=== PATIENT | female | born 1950 | race Caucasian/White ===

== ENCOUNTER 2024-11-10 09:55 | Inpatient (IN) ==
--- NOTE | 2024-11-10 10:17 | Emergency Department Note ---
Impression & Plan Nausea & vomiting, Acute dehydration, Chemotherapy induced nausea and vomiting, Chemotherapy induced neutropenia, Electrolyte abnormality, Perforation of tympanic membrane ED Provider Note NAME: GUMARO LEAHY AGE: 74 SEX: F : 1950 ARRIVES VIA: Walk-In INFORMANT: Patient, family member ED PROVIDER(S): Spenser Troy MD CHIEF COMPLAINT: MEDICAL DECISION MAKING: Patient presented due to concern for recent chemotherapy and associated nausea and vomiting. IV was established and blood work was obtained. The patient did receive IV Zofran and 2 L of IV fluids. Patient with significant leukopenia and low ANC of only 140. Afebrile. Patient's hemoglobin and platelet count are normal. Kidney function with creatinine 1.36. The patient does have low phosphorus magnesium and potassium. The patient was ordered replacements for the patient's magnesium and potassium IV. Upon reassessment the patient did have some mild improvement in symptoms. Given the patient's significant electrolyte derangements I did speak with the on-call hospitalist service and the patient was admitted to medicine service. Also of note the patient was noted to have a right tympanic membrane perforation. Likely secondary to the vomiting. No obvious otorrhea or infection. Discussion w/ other healthcare providers: Sally Gayle PA-C with Dr. Julisa Orourke medicine service Prior /Outside records reviewed: I reviewed part of hematology oncology report from Dr. Simms from November 04, 2024. Patient with history of stage I small cell lung cancer s/p resection lymph nodes negative. Post cycle 1 cisplatin etoposide. Patient was given fluids and antiemetics in clinic and was to follow-up. Differential diagnosis: Gastroenteritis, food borne illness, infection, appendicitis, diverticulitis, inflammatory bowel disease, obstruction among others were considered. Diagnostics, as interpreted by me: EKG: Normal sinus rhythm, rate of 74, normal intervals, normal axis no ST elevations or T WI. Cardiac monitoring: An order was placed for continuous cardiac monitoring. The monitor shows a rate of 75 with sinus rhythm. Patient was placed on pulse oximetry Medical decision rules: None Imaging studies: None HPI: Patient presents today due to concern for vomiting. Patient reportedly has had vomiting since the time of her chemotherapy. The patient did have infusions on the , and and developed vomiting that has been persistent since the . The patient was seen on the in clinic and did receive IV fluids and nausea medication. Patient reports that she is vomiting from 5-10 times daily and is not keeping anything down. Patient does have a prior history of small cell lung cancer. The patient did have a partial lobectomy completed at [facility] back in August. She denies any chest pains or shortness of breath. The patient does not have a port in place. PAST MEDICAL HISTORY: See Below PAST SURGICAL HISTORY: See Below SOCIAL HISTORY: See Below HOME MEDICATIONS: See Below ALLERGIES: See Below VITALS: See Below PHYSICAL EXAMINATION: GENERAL: NAD, non-toxic. EYE EXAM: Normal conjunctiva. PERRL, no anisocoria and EOM's grossly intact w/o pain. Hears: Right TM with perforation no obvious effusion or otorrhea. OROPHARYNX: Dry mucus membranes, grossly normal dentition. NECK: Trachea midline, no stridor. Supple, no nuchal rigidity, no adenopathy, non-tender. No signs of meningismus. FROM of the neck with good chin to chest and neck extension. LUNGS: Clear to auscultation. Normal chest wall mechanics. HEART: NSR, no MRG. ABDOMEN: Abdomen soft, non-tender, no masses, no rebound or guarding. BACK: No CVA TTP. SKIN: No rashes and no bruising. UPPER EXTREMITIES: Upper extremities are grossly normal. LOWER EXTREMITIES: Grossly normal, no edema. NEURO EXAM: A&O x3, cranial nerves II-XII grossly intact, normal speech, moves all 4 extremities. Past Med/Surg History Problem List (Updated 11/11/24 @ 13:59 by Spenser Troy MD) Perforation of tympanic membrane (Acute) Electrolyte abnormality (Acute) Chemotherapy induced neutropenia (Acute) Chemotherapy induced nausea and vomiting (Acute) Acute dehydration (Acute) Nausea & vomiting (Acute) Hypophosphatemia Hypomagnesemia Hypokalemia Neutropenia Nausea & vomiting Encounter for pre-operative examination Warthin's tumor Ex-smoker Abnormal positron emission tomography (PET) scan Small cell lung cancer in adult Chronic bronchitis COPD with emphysema Pulmonary nodules/lesions, multiple Type II diabetes mellitus Multinodular thyroid Hyperlipidemia Medical History Small cell lung cancer in adult dx 07/2024, sx and will begin chemo 10/28/24 Nausea and vomiting after administration of anesthetic agent History of depression "only when her in 1992" Type II diabetes mellitus pt denies, stated "she has always has been borderline" Multiple pulmonary nodules Multinodular thyroid Hyperlipidemia COPD with emphysema Chronic bronchitis Cervical disc disease hx Surgical History History of bronchoscopy 07/2024, [facility] Status post lung surgery (08/28/24) Right lung partial, lymph nodes, [facility] Hx of cervical spine surgery 2000, cervical disectomy, unsure of level, no ROM limitations Family History Brother Skin cancer Cancer Sister Colorectal cancer Diabetes Cancer Mother Myocardial infarction Diabetes Heart disease Father Myocardial infarction Diabetes Heart disease Denies family history of Sudden Ovarian cancer Prostate cancer Breast cancer Social History Smoking Status: Former smoker Tobacco Type: Cigarettes Age Started Using Tobacco: 18; Age Quit Using Tobacco: 74; packs per day: 1.5; Second Hand Exposure: No; Do You Dip or Chew Tobacco: No; Hx Alcohol Use: No Hx Substance Use: No Preferred Language: Indonesian Communication Ability: Effective Hearing Ability: Hard of Hearing Field Pipe Lines Supervisor Required: No Beliefs That Will Affect Care: None marital status: / Current Living Situation: Alone current occupational status: retired How many Children do You have: 2 Feels Safe at Home: Yes Diet: regular caffeine: Yes during the past year weight has: remained stable Dental Care, Regularly: No Physical Activity Frequency: Daily Physical Activity Frequency Comment: Walking, active around the house Seatbelt Use: always Sunscreen Use: No Assistive Devices: Walker Allergies Allergies Allergy/AdvReac Type Severity Reaction Status Date / Time No Known Allergies Allergy Verified 10/15/24 13:33 Home Meds Home Medications Medication Instructions Recorded Confirmed aspirin 81 mg tablet,delayed 81 mg PO HS 10/15/24 11/10/24 release mirtazapine 15 mg tablet 15 mg PO HS 10/15/24 11/10/24 omeprazole 20 mg capsule,delayed 20 mg PO BID 11/10/24 11/10/24 release Previous Rx's Medication Instructions Recorded nebulizer accessories #1 ea 04/21/24 nebulizer and compressor #1 ea 04/21/24 albuterol sulfate 90 mcg/actuation 2 puff inhalation Q6H PRN 07/08/24 aerosol inhaler shortness of breath or wheezing #8.5 grams ipratropium 0.5 mg-albuterol 3 mg 3 ml inhalation Q4H PRN wheezing 07/08/24 (2.5 mg base)/3 mL nebulization #180 mL soln tiotropium 2.5 mcg-olodaterol 2.5 2 puff inhalation QAM #4 grams 08/04/24 mcg/actuation mist for inhalation (Stiolto Respimat) ondansetron 4 mg disintegrating 4 mg PO Q8H PRN nausea and 10/02/24 tablet vomiting 5 days #30 tabs rosuvastatin 20 mg tablet 20 mg PO HS #100 tabs 11/03/24 Results & Data (ED) Vital Signs Vital Signs - 24 hr 11/10/24 09:58 11/10/24 10:23 11/10/24 10:40 Temperature 36.9 C Temperature Source Temporal Artery Scan Pulse Rate 89 83 83 Pulse Rate from SpO2 Sensor Pulse Rhythm Regular Respiratory Rate 16 16 Respiratory Effort / Characteristics Non-Labored Spontaneous Respiratory Depth Normal Blood Pressure 116/76 Blood Pressure Mean 89 Pulse Oximetry 97 97 Oxygen Delivery Method Room Air Room Air Sepsis Recent Fever Within 48 Hours No Sepsis New/Unexplained Change in Mental Status No Sepsis Action Taken by Nursing No Action Required 11/10/24 10:42 11/10/24 11:00 11/10/24 11:30 Temperature Temperature Source Pulse Rate 79 75 80 Pulse Rate from SpO2 Sensor 76 80 Pulse Rhythm Respiratory Rate 26 H 22 22 Respiratory Effort / Characteristics Respiratory Depth Blood Pressure Blood Pressure Mean Pulse Oximetry 97 98 Oxygen Delivery Method Sepsis Recent Fever Within 48 Hours Sepsis New/Unexplained Change in Mental Status Sepsis Action Taken by Nursing 11/10/24 12:03 Temperature Temperature Source Pulse Rate 80 Pulse Rate from SpO2 Sensor 81 Pulse Rhythm Respiratory Rate 22 Respiratory Effort / Characteristics Respiratory Depth Blood Pressure 101/47 L Blood Pressure Mean 65 Pulse Oximetry 96 Oxygen Delivery Method Sepsis Recent Fever Within 48 Hours Sepsis New/Unexplained Change in Mental Status Sepsis Action Taken by Half-Way Medications Current Medication List: was personally reviewed by me Laboratory Data Attestation: I reviewed the patient's lab results. 11/11/24 06:21 04/22/25 06:21 Lab Results 11/10/24 Range/Units 10:44 WBC 1.62 L (4.8-10.8) K/ul RBC 4.08 L (4.20-5.40) M/uL Hgb 12.3 (12.0-16.0) g/dl Hct 35.7 L (37.0-47.0) % MCV 87.5 (80.0-100.0) fL MCH 30.1 (25.0-34.0) pg MCHC 34.5 (32.0-36.0) g/dL RDW Std Deviation 38.3 (36.4-46.3) fL RDW Coeff of Wilfred 11.9 (11.5-14.5) % Plt Count 136 (130-400) K/uL MPV 10.3 (9.4-12.4) fL Immature Gran % (Auto) 0.6 % Neut % (Auto) 8.7 % Lymph % (Auto) 67.9 % Sebastian % (Auto) 22.2 % Eos % (Auto) 0.0 % Baso % (Auto) 0.6 % Neut # (Auto) 0.14 L* (1.40-6.50) K/uL Lymph # (Auto) 1.10 L (1.20-3.40) K/uL Sebastian # (Auto) 0.36 (0.11-0.59) K/uL Eos # (Auto) 0.00 (0.00-0.50) K/uL Baso # (Auto) 0.01 (0.00-0.20) K/uL Immature Gran # (Auto) 0.01 (0.01-0.20) K/uL Sodium 136 (136-145) mmol/L Potassium 3.2 L (3.5-5.1) mmol/L Chloride 97 L (98-107) mmol/L Carbon Dioxide 27 (21-32) mmol/L Anion Gap 12 H (3-11) BUN 14 (6-23) mg/dl Creatinine 1.36 H (0.6-1.2) mg/dl Est Cr Clr Drug Dosing 29.3 ml/min eGFR 41.39 BUN/Creatinine Ratio 10.3 (10-20) Glucose 119 H (70-99(Fasting)) mg/dl Calcium 9.0 (8.6-10.3) mg/dl Phosphorus 2.2 L (2.5-4.9) mg/dl Magnesium 1.1 L (1.7-2.4) mg/dl Total Bilirubin 0.4 (0.2-1.0) mg/dl AST 13 (13-39) U/L ALT 8 (7-52) U/L Alkaline Phosphatase 68 (34-104) U/L Total Protein 7.4 (6.0-8.3) gm/dl Albumin 3.9 (3.4-5.0) gm/dl Globulin 3.5 (2.5-4.0) gm/dl Albumin/Globulin Ratio 1.1 (0.9-2) Administered Medications Aspirin (Aspirin 81 Mg Ectab) 81 mg PO HS JUAN Stop: 12/10/24 20:59 Last Admin: 11/10/24 19:52 Dose: 81 mg Documented By: ROSA Heparin Sodium (Porcine) (Heparin Sod 5,000 Unit/0.5 Ml Vial) 7,500 units SQ Q12 JUAN Stop: 12/10/24 20:59 Last Admin: 11/11/24 07:54 Dose: Not Given Documented By: CARLOS A Admin: 11/10/24 19:47 Dose: Not Given Documented By: ROSA Pantoprazole Sodium (Protonix) 40 mg in 10 mls @ 5 mls/min IV BID JUAN Stop: 12/10/24 12:59 Last Admin: 11/11/24 10:04 Dose: 5 mls/min Documented By: CARLOS A Admin: 11/10/24 19:54 Dose: 5 mls/min Documented By: Admin: 11/10/24 14:35 Dose: 5 mls/min Documented By: SARAH Lactated Ringer's (Lr) 1,000 mls @ 80 mls/hr IV .[id number] JUAN Stop: 11/11/24 14:29 Last Admin: 11/11/24 04:00 Dose: 80 mls/hr Documented By: Infusion: 11/11/24 03:50 Dose: Infused Documented By: Admin: 11/10/24 14:41 Dose: 80 mls/hr Documented By: SARAH Metoclopramide HCl (Metoclopramide Hcl Inj 5 Mg/Ml 2 Ml Vial) 10 mg IV Q6H JUAN Stop: 12/10/24 13:29 Last Admin: 11/11/24 13:32 Dose: Not Given Documented By: CARLOS A Admin: 11/11/24 07:45 Dose: 10 mg Documented By: CARLOS A Admin: 11/11/24 03:09 Dose: Not Given Documented By: Admin: 11/10/24 19:42 Dose: 10 mg Documented By: Admin: 11/10/24 14:44 Dose: 10 mg Documented By: SARAH Mirtazapine (Mirtazapine Tab 15 Mg Tab) 15 mg PO HS JUAN Stop: 12/10/24 20:59 Last Admin: 11/10/24 19:52 Dose: 15 mg Documented By: ROSA Discontinued Medications Sodium Chloride (Nss) 1,000 mls @ 999 mls/hr IV .[id number] JUAN Stop: 11/10/24 12:45 Last Infusion: 11/10/24 12:50 Dose: Infused Documented By: Admin: 11/10/24 11:58 Dose: 999 mls/hr Documented By: Infusion: 11/10/24 11:57 Dose: Infused Documented By: Admin: 11/10/24 11:05 Dose: 999 mls/hr Documented By: MARIANA Magnesium Sulfate/Dextrose (Magnesium Sulfate / D5w) 1 gm in 100 mls @ 100 mls/hr IV NOW STA Stop: 11/10/24 13:28 Last Infusion: 11/10/24 13:47 Dose: Infused Documented By: Admin: 11/10/24 12:57 Dose: 100 mls/hr Documented By: MARIANA Potassium Chloride (K Yariel / Wtr) 10 meq in 100 mls @ 100 mls/hr IV Q1H JUAN Stop: 11/10/24 14:29 Last Admin: 11/10/24 12:50 Dose: Not Given Documented By: MARIANA Magnesium Sulfate/Dextrose (Magnesium Sulfate / D5w) 1 gm in 100 mls @ 50 mls/hr IV Q2H JUAN Stop: 11/10/24 16:44 Last Infusion: 11/10/24 19:33 Dose: Infused Documented By: Admin: 11/10/24 17:33 Dose: 50 mls/hr Documented By: Infusion: 11/10/24 17:00 Dose: Infused Documented By: Admin: 11/10/24 14:35 Dose: 50 mls/hr Documented By: SARAH Potassium Phosphate 6 mmol/ (Sodium Chloride) 102 mls @ 88 mls/hr IV ONE ONE Stop: 11/10/24 14:09 Last Infusion: 11/10/24 15:45 Dose: Infused Documented By: Admin: 11/10/24 14:35 Dose: 88 mls/hr Documented By: SARAH Potassium Chloride (K Yariel / Wtr) 10 meq in 100 mls @ 100 mls/hr IV Q1H JUAN Stop: 11/11/24 11:44 Last Infusion: 11/11/24 12:18 Dose: Infused Documented By: CARLOS A Admin: 11/11/24 11:17 Dose: 100 mls/hr Documented By: CARLOS A Infusion: 11/11/24 11:04 Dose: Infused Documented By: CARLOS A Admin: 11/11/24 10:04 Dose: 100 mls/hr Documented By: CARLOS A Ondansetron HCl (Ondansetron Inj 2 Mg/Ml 2 Ml Vial) 4 mg IV NOW STA Stop: 11/10/24 10:44 Last Admin: 11/10/24 11:05 Dose: 4 mg Documented By: MARIANA Sodium Phosphate (Sodium Phosphate 3 Mmol/1 Ml Infusion) 6 mmol IV NOW STA Stop: 11/10/24 12:43 Last Admin: 11/10/24 12:50 Dose: Not Given Documented By: MARIANA Discharge Plan Visit Data Chief Complaint: Vomiting Stated Complaint: CHEMO, VOMITING SINCE ED Provider: Spenser Troy Discharge Problem: Nausea & vomiting, Acute dehydration, Chemotherapy induced nausea and vomiting, Chemotherapy induced neutropenia, Electrolyte abnormality, Perforation of tympanic membrane Patient Disposition: Admitted As Inpatient Discharge Instructions Interventions: ED Discharge Assessment Last Done: 11/10/24 13:43 Discharge Problem: Nausea & vomiting Qualifiers: Vomiting type: unspecified Qualified Code(s): R11.2 - Nausea with vomiting, unspecified Perforation of tympanic membrane Qualifiers: Laterality: right Qualified Code(s): H72.91 - Unspecified perforation of tympanic membrane, right ear
[2024-11-10] MEDS: ONDANSETRON INJ 2 MG/ML 2 ML VIAL IV STA (11:05)
[2024-11-10] MEDS: SODIUM CHLORIDE 0.9% 1,000 ML IV SCH (11:05)
[2024-11-10 11:18] LABS: Hematocrit (blood only) 35.7 % (37.0-47.0); Hemoglobin 12.3 g/dl (12.0-16.0); Mean Corpuscular Hemoglobin 30.1 pg (25.0-34.0); Mean Corpuscular Hgb Conc 34.5 g/dL (32.0-36.0); Mean Corpuscular Volume 87.5 fL (80.0-100.0); Mean Platelet Volume 10.3 fL (9.4-12.4); Platelet Count 136 K/uL (130-400); RDW Coefficient of Variation 11.9 % (11.5-14.5); RDW Standard Deviation 38.3 fL (36.4-46.3); Red Blood Count 4.08 M/uL (4.20-5.40)
[2024-11-10 11:20] LABS: Albumin Globulin Ratio 1.1 (0.9-2); Albumin Level 3.9 gm/dl (3.4-5.0); BUN Creatinine Ratio 10.3 (10-20); Bilirubin,Total 0.4 mg/dl (0.2-1.0); Creatinine Clr Calc Pharmacy 29.3 ml/min; Globulin 3.5 gm/dl (2.5-4.0); Magnesium 1.1 mg/dl (1.7-2.4); Phosphorus 2.2 mg/dl (2.5-4.9); Potassium 3.2 mmol/L (3.5-5.1); Total Protein 7.4 gm/dl (6.0-8.3)
[2024-11-10 11:49] LABS: White Blood Count 1.62 K/ul (4.8-10.8)
[2024-11-10 11:56] LABS: Basophils # (auto) 0.01 K/uL (0.00-0.20); Basophils % (auto) 0.6 %; Immature Granulocytes # (auto) 0.01 K/uL (0.01-0.20); Immature Granulocytes % (auto) 0.6 %; Lymphocytes % (auto) 67.9 %; Monocytes # (auto) 0.36 K/uL (0.11-0.59); Monocytes % (auto) 22.2 %; Neutrophils # (auto) 0.14 K/uL (1.40-6.50); Neutrophils % (auto) 8.7 %
[2024-11-10] MEDS ORDERED: POTASSIUM PHOS 3 MMOL/1 ML INFUSION IV STA (12:44)
[2024-11-10] MEDS ORDERED: ONDANSETRON INJ 2 MG/ML 2 ML VIAL IV PRN (12:45)
[2024-11-10] MEDS: SODIUM PHOSPHATE 3 MMOL/1 ML INFUSION IV STA (12:50)
[2024-11-10] MEDS: POTASSIUM CHLORIDE / WTR 10 MEQ/100 ML PLCT IV SCH (12:50)
[2024-11-10] MEDS ORDERED: PROMETHAZINE 6.25 MG/50.25 ML BAG IV PRN (12:56)
[2024-11-10] MEDS ORDERED: ACETAMINOPHEN 325 MG TAB PO PRN (12:56)
[2024-11-10] MEDS: MAGNESIUM SULFATE / D5W 1 GM/100 ML BAG IV STA (12:57)
--- NOTE | 2024-11-10 13:21 | History & Physical Report ---
Date of Service November 10, 2024 Assessment & Plan (1) Nausea & vomiting: (2) Small cell lung cancer in adult: (3) Neutropenia: (4) Type II diabetes mellitus: (5) Hypokalemia: (6) Hypomagnesemia: (7) Hypophosphatemia: Plan This is a 74-year-old female with past medical history of COPD, small cell lung cancer, type 2 diabetes who presented to the emergency department on with a chief complaint of refractory nausea/vomiting. While in the ED patient was found to have a low WBC of 1.62 with neutrophil 0.14. Hemoglobin and platelet count both stable. BMP with low potassium of 3.2. Creatinine was 1.36 which has improved from 11/04. (1.75). Phosphorus was low at 2.2 and magnesium was low at 1.1. Patient's electrolytes were replaced, she was given IV fluids, and a dose of Zofran. #Nausea/Vomiting/Electrolyte abnormalities Secondary to recent chemotherapy infusions 10/28-10/30. She has been persistently vomiting since 11/02. s/p IVF & antiemetics at oncology clinic on 11/04. Start Reglan 10mg IV q6h scheduled to aide w/ continuous nausea. Start IV PPI BID. Zofran 1st line, Phenergan 2nd line prn for refractory nausea/vomiting Obtain EKG to evaluate QTc interval NPO, allowed sips/chips as tolerated. AM CBC, BMP, Phosphorous, and Magnesium #Electrolyte abnormalities/PATI Baseline creatinine 0.7-0.8 BMP w/ low K of 3.2, Creatinine 1.36 (previously 1.75 on 11/04 s/p 1L IVF @ onc) Magnesium 1.1, Phosphorous 2.2 s/p repletion of Mag, Phos & K s/p 2L IVF in ED, continue IV at gentle rate to promote rehydration, LR @ 80ml/hr x 2 additional bags. Recheck labs in AM #SCLC/Neutropenia Patient w/ recent diagnosis of SCLC w/ partial right lobectomy in 08/2024 @ [facility]. Started Chemotherapy w/ cisplatin/etoposide on 10/28 Follows w/ Dr. Simms outpatient CBC w/ low WBC of 1.26 w/ neutrophil of 0.14 Neutropenic precautions Oncology consulted, appreciate recommendations. Continue home inhalers #Type 2 DM A1c 07/2024: 6.6% Does not appear to be on outpatient regimen. BG @ admission 119 Hold SSI given poor appetite & NPO status Consider SSI coverage if BG start to be consistently elevated. Chronic conditions: Mental health: Mirtazapine HLD: statin hold while NPO DVT prophylaxis: Heparin BID Code: DNR/DNI Updated family at bedside 11/[address] Egan at time of admission. History of Present Illness Primary Care Provider: CRISTINA Dupont This is a 74-year-old female with past medical history of COPD, small cell lung cancer, type 2 diabetes who presented to the emergency department on with a chief complaint of refractory nausea/vomiting. The patient was seen and examined this morning with family at bedside. Patient reports that she has been having ongoing nausea and vomiting since her first round of chemotherapy. Patient was recently diagnosed with small cell lung cancer and had a partial right lobectomy at [facility] in August 2024. She had chemotherapy infusions on October 28, , and . She then developed vomiting afterwards and has had persistent symptoms since about November 02. She was seen back in the oncology clinic on November 04 in which she had IV fluids and antiemetics given to her. Despite this she continues to experience symptoms. She is having about 5-10 episodes of emesis daily. She is having issues keeping food down. She states that since chemotherapy she has kept very little food down. Her last episode of emesis was just prior to my arrival. She states that she is able to drink small sips of water and that typically does stay down. She denies any abdominal pain. She reports that she was constipated during this time but this morning had an episode of diarrhea. She denies any hematemesis. She denies any fevers, chills, dizziness. She denies any chest pain or shortness of breath. Denies any lower extremity edema. Denies any urinary complaints. Code discussion to take place with the patient and she did report that she would like to be a DNR/DNI. While in the ED patient was found to have a low WBC of 1.62 with neutrophil 0.14. Hemoglobin and platelet count both stable. BMP with low potassium of 3.2. Creatinine was 1.36 which has improved from 11/04. (1.75). Phosphorus was low at 2.2 and magnesium was low at 1.1. Patient's electrolytes were replaced, she was given IV fluids, and a dose of Zofran. Allergies Allergy/AdvReac Type Severity Reaction Status Date / Time No Known Allergies Allergy Verified 10/15/24 13:33 Home Medications Medication Instructions Recorded Confirmed Type nebulizer accessories #1 ea 04/21/24 10/02/24 Rx nebulizer and compressor #1 ea 04/21/24 10/02/24 Rx albuterol sulfate 90 mcg/actuation 2 puff inhalation Q6H PRN 07/08/24 10/15/24 Rx aerosol inhaler shortness of breath or wheezing #8.5 grams ipratropium 0.5 mg-albuterol 3 mg 3 ml inhalation Q4H PRN wheezing 07/08/24 10/15/24 Rx (2.5 mg base)/3 mL nebulization #180 mL soln tiotropium 2.5 mcg-olodaterol 2.5 2 puff inhalation QAM #4 grams 08/04/24 10/15/24 Rx mcg/actuation mist for inhalation (Stiolto Respimat) ondansetron 4 mg disintegrating 4 mg PO Q8H PRN nausea and 10/02/24 10/15/24 Rx tablet vomiting 5 days #30 tabs aspirin 81 mg tablet,delayed 81 mg PO HS 10/15/24 10/15/24 History release mirtazapine 15 mg tablet 15 mg PO HS 10/15/24 10/15/24 History rosuvastatin 20 mg tablet 20 mg PO HS #100 tabs 11/03/24 Rx Past Med/Surg History Problem List (Updated 11/10/24 @ 13:08 by Janay White PA-C) Hypophosphatemia Hypomagnesemia Hypokalemia Neutropenia Nausea & vomiting Encounter for pre-operative examination Warthin's tumor Ex-smoker Abnormal positron emission tomography (PET) scan Small cell lung cancer in adult Chronic bronchitis COPD with emphysema Pulmonary nodules/lesions, multiple Type II diabetes mellitus Multinodular thyroid Hyperlipidemia Medical History Cervical disc disease hx Chronic bronchitis COPD with emphysema History of depression "only when her in 1992" Hyperlipidemia Multinodular thyroid Multiple pulmonary nodules Nausea and vomiting after administration of anesthetic agent Small cell lung cancer in adult dx 07/2024, sx and will begin chemo 10/28/24 Type II diabetes mellitus pt denies, stated "she has always has been borderline" Surgical History History of bronchoscopy 07/2024, [facility] Hx of cervical spine surgery 2000, cervical disectomy, unsure of level, no ROM limitations Status post lung surgery (08/28/24) Right lung partial, lymph nodes, [facility] Family History Brother Skin cancer Cancer Sister Colorectal cancer Diabetes Cancer Mother Myocardial infarction Diabetes Heart disease Father Myocardial infarction Diabetes Heart disease Denies family history of Sudden Ovarian cancer Prostate cancer Breast cancer Social History (Updated 10/15/24 @ 10:33 by Cielo Owen RN) Smoking Status: Former smoker Tobacco Type: Cigarettes Age Started Using Tobacco: 18; Age Quit Using Tobacco: 74; packs per day: 1.5; Second Hand Exposure: Yes (hx); Do You Dip or Chew Tobacco: No; Hx Alcohol Use: No Hx Substance Use: No Preferred Language: Somali Communication Ability: Effective Hearing Ability: Hard of Hearing Sleep Technologist Required: No Beliefs That Will Affect Care: None marital status: / Current Living Situation: Alone current occupational status: retired How many Children do You have: 2 Feels Safe at Home: Yes Diet: regular caffeine: Yes during the past year weight has: remained stable Dental Care, Regularly: No Physical Activity Frequency: Daily Physical Activity Frequency Comment: Walking, active around the house Seatbelt Use: always Sunscreen Use: No Assistive Devices: Denture - Upper, Denture - Lower and Nebulizer Results & Data Results & Data Vital Signs (Past 12 Hours) Vital Signs Temp Pulse Resp BP Pulse Ox O2 Del Method 11/10/24 12:03 80 22 101/47 L 96 11/10/24 11:30 80 22 98 11/10/24 11:00 75 22 97 11/10/24 10:42 79 26 H 11/10/24 10:40 83 16 97 Room Air 11/10/24 10:23 83 11/10/24 09:58 36.9 C 89 16 116/76 97 Room Air Code Status & VTE Plan VTE Prophylaxis Plan VTE Prophylaxis will be ordered: Yes Supervising Physician Co-Signing Physician Notes The patient was seen by me. The chart was reviewed. Case discussed with BERNARD Garcia. Agree with assessment and plan PG Care Time/CCT Total # of Minutes Spent Total Time Spent with Patient: Total time spent is greater than 50% in coordination of care (as documented) at patient's floor/unit and/or counseling patient: Coding Level of Care Code 48975 INT INP/OBS CARE 3/75MIN Diagnoses Nausea & vomiting R11.2 Small cell lung cancer in adult C34.90 Neutropenia D70.9 Type II diabetes mellitus E11.9 Hypokalemia E87.6 Hypomagnesemia E83.42 Hypophosphatemia E83.39
[2024-11-10] MEDS ORDERED: ALBUT/IPRATROP 3MG/0.5MG NEB 3 ML VIAL INH PRN (14:00)
[2024-11-10] MEDS ORDERED: ALBUTEROL HFA 8 GM INHALER INH PRN (14:00)
[2024-11-10] MEDS: MAGNESIUM SULFATE / D5W 1 GM/100 ML BAG IV SCH (14:35)
[2024-11-10] MEDS: PANTOprazole 40 MG/10 ML SYR IV SCH (14:35)
[2024-11-10] MEDS: POTASSIUM PHOSPHATE 6 MMOL in SODIUM CHLORIDE 0.9% 100 ML IV ONE (14:35)
[2024-11-10] MEDS: LACTATED RINGER'S 1,000 ML IV SCH (14:41)
[2024-11-10] MEDS: METOCLOPRAMIDE HCL INJ 5 MG/ML 2 ML VIAL IV SCH (14:44)
[2024-11-10] MEDS: HEPARIN SOD 5,000 UNIT/0.5 ML VIAL SQ SCH (19:47)
[2024-11-10] MEDS: MIRTAZAPINE TAB 15 MG TAB PO SCH (19:52)
[2024-11-10] MEDS: ASPIRIN 81 MG ECTAB PO SCH (19:52)
[2024-11-11 07:11] LABS: Hematocrit (blood only) 29.8 % (37.0-47.0); Hemoglobin 10.2 g/dl (12.0-16.0); Mean Corpuscular Hemoglobin 29.9 pg (25.0-34.0); Mean Corpuscular Hgb Conc 34.2 g/dL (32.0-36.0); Mean Corpuscular Volume 87.4 fL (80.0-100.0); Mean Platelet Volume 10.1 fL (9.4-12.4); Platelet Count 170 K/uL (130-400); RDW Coefficient of Variation 12.1 % (11.5-14.5); RDW Standard Deviation 38.7 fL (36.4-46.3); Red Blood Count 3.41 M/uL (4.20-5.40)
--- NOTE | 2024-11-11 07:13 | Oncology Consultation ---
Date of Consultation November 11, 2024 History of Present Illness Attending Physician: Whitney Rivera DO Allergies Allergy/AdvReac Type Severity Reaction Status Date / Time No Known Allergies Allergy Verified 10/15/24 13:33 Home Medications Medication Instructions Recorded Confirmed Type nebulizer accessories #1 ea 04/21/24 10/02/24 Rx nebulizer and compressor #1 ea 04/21/24 10/02/24 Rx albuterol sulfate 90 mcg/actuation 2 puff inhalation Q6H PRN 07/08/24 11/10/24 Rx aerosol inhaler shortness of breath or wheezing #8.5 grams ipratropium 0.5 mg-albuterol 3 mg 3 ml inhalation Q4H PRN wheezing 07/08/24 11/10/24 Rx (2.5 mg base)/3 mL nebulization #180 mL soln tiotropium 2.5 mcg-olodaterol 2.5 2 puff inhalation QAM #4 grams 08/04/24 11/10/24 Rx mcg/actuation mist for inhalation (Stiolto Respimat) ondansetron 4 mg disintegrating 4 mg PO Q8H PRN nausea and 10/02/24 11/10/24 Rx tablet vomiting 5 days #30 tabs aspirin 81 mg tablet,delayed 81 mg PO HS 10/15/24 11/10/24 History release mirtazapine 15 mg tablet 15 mg PO HS 10/15/24 11/10/24 History rosuvastatin 20 mg tablet 20 mg PO HS #100 tabs 11/03/24 11/10/24 Rx omeprazole 20 mg capsule,delayed 20 mg PO BID 11/10/24 11/10/24 History release Patient History Medical History Cervical disc disease hx Chronic bronchitis COPD with emphysema History of depression "only when her in 1992" Hyperlipidemia Multinodular thyroid Multiple pulmonary nodules Nausea and vomiting after administration of anesthetic agent Small cell lung cancer in adult dx 07/2024, sx and will begin chemo 10/28/24 Type II diabetes mellitus pt denies, stated "she has always has been borderline" Surgical History History of bronchoscopy 07/2024, [facility] Hx of cervical spine surgery 2000, cervical disectomy, unsure of level, no ROM limitations Status post lung surgery (08/28/24) Right lung partial, lymph nodes, [facility] Family History Brother Skin cancer Cancer Sister Colorectal cancer Diabetes Cancer Mother Myocardial infarction Diabetes Heart disease Father Myocardial infarction Diabetes Heart disease Denies family history of Sudden Ovarian cancer Prostate cancer Breast cancer Social History (Updated 10/15/24 @ 10:33 by Cielo Owen, RN) Smoking Status: Former smoker Tobacco Type: Cigarettes Age Started Using Tobacco: 18; Age Quit Using Tobacco: 74; packs per day: 1.5; Second Hand Exposure: No; Do You Dip or Chew Tobacco: No; Hx Alcohol Use: No Hx Substance Use: No Preferred Language: Yi Communication Ability: Effective Hearing Ability: Hard of Hearing Cylinder Checker Required: No Beliefs That Will Affect Care: None marital status: / Current Living Situation: Alone current occupational status: retired How many Children do You have: 2 Feels Safe at Home: Yes Diet: regular caffeine: Yes during the past year weight has: remained stable Dental Care, Regularly: No Physical Activity Frequency: Daily Physical Activity Frequency Comment: Walking, active around the house Seatbelt Use: always Sunscreen Use: No Assistive Devices: Denture - Upper, Denture - Lower, Glasses and Walker Results & Data Vital Signs (Past 12 Hours) Vital Signs Temp Pulse Pulse Resp BP Pulse Ox O2 Del Method 11/11/24 05:41 68 11/11/24 03:44 36.8 C 72 18 117/69 94 Room Air 11/10/24 23:12 37.1 C 79 18 120/58 L 93 Room Air 11/10/24 22:15 77 11/10/24 19:34 Room Air 11/10/24 19:30 36.9 C 74 18 127/72 94 Room Air
[2024-11-11 07:21] LABS: BUN Creatinine Ratio 8.5 (10-20); Creatinine Clr Calc Pharmacy 38.4 ml/min; Magnesium 1.6 mg/dl (1.7-2.4); Phosphorus 2.4 mg/dl (2.5-4.9); Potassium 2.8 mmol/L (3.5-5.1)
[2024-11-11 07:35] LABS: White Blood Count 2.82 K/ul (4.8-10.8)
[2024-11-11 08:04] LABS: Basophils # (auto) 0.01 K/uL (0.00-0.20); Basophils % (auto) 0.4 %; Dohle Bodies 1+; Eosinophils # (auto) 0.01 K/uL (0.00-0.50); Eosinophils % (auto) 0.4 %; Immature Granulocytes # (auto) 0.04 K/uL (0.01-0.20); Immature Granulocytes % (auto) 1.4 %; Lymphocytes # (auto) 1.41 K/uL (1.20-3.40); Monocytes # (auto) 0.58 K/uL (0.11-0.59); Monocytes % (auto) 20.6 %; Neutrophils # (auto) 0.77 K/uL (1.40-6.50); Neutrophils % (auto) 27.2 %; Polychromasia 1+
[2024-11-11] MEDS: POTASSIUM CHLORIDE / WTR 10 MEQ/100 ML PLCT IV SCH (10:04)
--- NOTE | 2024-11-11 10:10 | Electrocardiogram Report ---
Test Reason : Blood Pressure : */* mmHG Vent. Rate : 74 BPM Atrial Rate : 74 BPM P-R Int : 168 ms QRS Dur : 86 ms QT Int : 386 ms P-R-T Axes : 68 60 39 degrees QTcB Int : 428 ms Normal sinus rhythm Nonspecific T wave abnormality Abnormal ECG When compared with ECG of 30-Jul-2024 06:09, Nonspecific T wave abnormality now evident in Lateral leads Confirmed by Gurwinder Contreras ([id number]) on 11/11/2024 10:10:51 AM Referred By: REFERRED SELF Confirmed By: Gurwinder Contreras
--- NOTE | 2024-11-11 14:29 | Hospitalist Progress Note ---
Date of Service November 11, 2024 Assessment & Plan (1) Nausea & vomiting: (2) Small cell lung cancer in adult: (3) Neutropenia: (4) Type II diabetes mellitus: (5) Hypokalemia: (6) Hypomagnesemia: (7) Hypophosphatemia: Plan This is a 74-year-old female with past medical history of COPD, small cell lung cancer, type 2 diabetes who presented to the emergency department on with a chief complaint of refractory nausea/vomiting. While in the ED patient was found to have a low WBC of 1.62 with neutrophil 0.14. Hemoglobin and platelet count both stable. BMP with low potassium of 3.2. Creatinine was 1.36 which has improved from 11/04. (1.75). Phosphorus was low at 2.2 and magnesium was low at 1.1. Patient's electrolytes were replaced, she was given IV fluids, and a dose of Zofran. overall plan started on diet on 11/11, c/w reglan IV replacement kcl with IV and oral giving her magnesium IV today given low magnesium of 1.6 she was seen by PT on 11/11 and doing well tomorrow, may switch from IV to oral reglan to ensure she's tolerate diet continue to monitor for hypokalemia, hypomagnesemia # chemo related nausea and vomiting recent chem 10/28-10/30. She has been persistently vomiting since 11/02. s/p IVF & antiemetics at oncology clinic on 11/04. improving reglan 10mg IV [id number] schedule and on 11/11, started diet check QTc interval Start IV PPI BID. Zofran 1st line, Phenergan 2nd line prn for refractory nausea/vomiting Obtain EKG to evaluate QTc interval hypokalemia potassium of 2.7, s/p IV potassium replacement oral replacement PATI (baseline of 0.7--> 1.36) s/p IV fluid stable. hypomagnesium-giving her replacement her magnesium is 1.6 on 11/11 will give another magnesium 2mg IV #SCLC/Neutropenia newly diagnosed SCLC w/ partial right lobectomy in 08/2024 @ [facility]. Started Chemotherapy w/ cisplatin/etoposide on 10/28 Follows w/ Dr. Simms outpatient CBC w/ low WBC of 1.26 w/ neutrophil of 0.14 Neutropenic precautions Oncology consulted, appreciate recommendations. Continue home inhalers #Type 2 DM (a1c of 6.6) Hold SSI given poor appetite & NPO status Consider SSI coverage if BG start to be consistently elevated. Chronic conditions: Mental health: Mirtazapine HLD: statin hold while NPO DVT prophylaxis: Heparin BID Code: DNR/DNI Admission and Anticipated Discharge Date Admission Date: November 10, 2024 Subjective she was started on soft diet today, her hypokalemia still there started on IV improvement chemo related nausea and vomiting no abdominal pain cleared by PT Review of Systems Review of Systems: Constitutional: No Weight Change, No Fever, No Chills, No Night Sweats, No Fa tigue, No Malaise Cardiovascular: No Chest Pain, No SOB, No PND, No Dyspnea on Exertion, No Orthopnea, No Claudication, No Edema, No Palpitations Respiratory: No Cough, No Sputum, No Wheezing, No Smoke Exposure, No Dyspnea Gastrointestinal: nausea and vomiting improved; no abdominal pain, no diarrhea Skin: No Skin Lesions, No Pruritis, No Hair Changes, No Breast/Skin Changes, No Nipple Discharge Neuro: No Weakness, No Numbness, No Paresthesias, No Loss of Consciousness, No Syncope, No Dizziness, No Headache, No Coordination Changes, No Recent Falls Heme/Lymph: No Bruising, No Bleeding, No Transfusions History, No Lymphadenopathy Endocrine: No Polyuria, No Polydipsia, No Temperature Intolerance Physical Exam Physical Exam: VITALS: Reviewed. WEIGHT/BMI reviewed. GEN: Healthy appearing, well-developed, NAD. -Head: NC/AT; -Mouth and throat: MMM. Normal gums, muc meka, palate,. Good dentition. NECK: Supple, with no masses. CV: RRR, no m/r/g. LUNGS: CTAB, no w/r/c. ABD: Soft, NT/ND, NBS, no masses or organomegaly. MSK: No deformities, Normal gait. EXT: No clubbing, cyanosis, or edema. NEURO: Ambulating with no limitations. Normal muscle strength and tone. No focal deficits. Results & Data Results & Data Vital Signs (Past 12 Hours) Vital Signs Temp Pulse Pulse Resp BP Pulse Ox O2 Del Method 11/11/24 11:55 36.8 C 76 18 116/70 97 Room Air 11/11/24 10:57 Room Air 11/11/24 08:03 36.9 C 72 16 113/66 95 Room Air 11/11/24 05:41 68 11/11/24 03:44 36.8 C 72 18 117/69 94 Room Air Laboratory Results Laboratory Results - last 72 hr 11/10/24 11/10/24 11/10/24 10:44 18:27 23:59 WBC 1.62 L RBC 4.08 L Hgb 12.3 Hct 35.7 L MCV 87.5 MCH 30.1 MCHC 34.5 RDW Std Deviation 38.3 RDW Coeff of Wilfred 11.9 Plt Count 136 MPV 10.3 Immature Gran % (Auto) 0.6 Neut % (Auto) 8.7 Lymph % (Auto) 67.9 [place] % (Auto) 22.2 Eos % (Auto) 0.0 Baso % (Auto) 0.6 Neut # (Auto) 0.14 L* Lymph # (Auto) 1.10 L [place] # (Auto) 0.36 Eos # (Auto) 0.00 Baso # (Auto) 0.01 Immature Gran # (Auto) 0.01 Dohle Bodies Polychromasia Sodium 136 Potassium 3.2 L Chloride 97 L Carbon Dioxide 27 Anion Gap 12 H BUN 14 Creatinine 1.36 H Est Cr Clr Drug Dosing 29.3 eGFR 41.39 BUN/Creatinine Ratio 10.3 Glucose 119 H POC Glucose 104 H 89 Calcium 9.0 Phosphorus 2.2 L Magnesium 1.1 L Total Bilirubin 0.4 AST 13 ALT 8 Alkaline Phosphatase 68 Total Protein 7.4 Albumin 3.9 Globulin 3.5 Albumin/Globulin Ratio 1.1 11/11/24 11/11/24 11/11/24 06:21 06:23 12:02 WBC 2.82 L RBC 3.41 L Hgb 10.2 L Hct 29.8 L MCV 87.4 MCH 29.9 MCHC 34.2 RDW Std Deviation 38.7 RDW Coeff of Wilfred 12.1 Plt Count 170 MPV 10.1 Immature Gran % (Auto) 1.4 Neut % (Auto) 27.2 Lymph % (Auto) 50.0 [place] % (Auto) 20.6 Eos % (Auto) 0.4 Baso % (Auto) 0.4 Neut # (Auto) 0.77 L* Lymph # (Auto) 1.41 [place] # (Auto) 0.58 Eos # (Auto) 0.01 Baso # (Auto) 0.01 Immature Gran # (Auto) 0.04 Dohle Bodies 1+ Polychromasia 1+ Sodium 138 Potassium 2.8 L Chloride 104 Carbon Dioxide 27 Anion Gap 7 BUN 9 Creatinine 1.06 D Est Cr Clr Drug Dosing 38.4 eGFR 55.81 BUN/Creatinine Ratio 8.5 L Glucose 86 POC Glucose 88 79 Calcium 8.0 L Phosphorus 2.4 L Magnesium 1.6 L Total Bilirubin AST ALT Alkaline Phosphatase Total Protein Albumin Globulin Albumin/Globulin Ratio Medications Administered Current Inpatient Medications Acetaminophen (Acetaminophen 325 Mg Tab) 650 mg PO Q4H PRN PRN Reason: Pain or Fever Stop: 12/10/24 12:55 Albuterol (Albuterol Hfa 8 Gm Inhaler) 2 puffs INH Q6H PRN PRN Reason: shortness of breath or wheezing Stop: 12/10/24 13:59 Albuterol (Albut/Ipratrop 3mg/0.5mg Neb 3 Ml Vial) 3 ml INH Q4H PRN; Protocol PRN Reason: wheezing Stop: 12/10/24 13:59 Aspirin (Aspirin 81 Mg Ectab) 81 mg PO HS JUAN Stop: 12/10/24 20:59 Last Admin: 11/10/24 19:52 Dose: 81 mg Heparin Sodium (Porcine) (Heparin Sod 5,000 Unit/0.5 Ml Vial) 7,500 units SQ Q12 JUAN Stop: 12/10/24 20:59 Last Admin: 11/11/24 07:54 Dose: Not Given Promethazine HCl (Phenergan) 6.25 mg in 50.25 mls @ 201 mls/hr IV Q6H PRN PRN Reason: Nausea And Vomiting Stop: 12/10/24 12:55 Pantoprazole Sodium (Protonix) 40 mg in 10 mls @ 5 mls/min IV BID JUAN Stop: 12/10/24 12:59 Last Admin: 11/11/24 10:04 Dose: 5 mls/min Lactated Ringer's (Lr) 1,000 mls @ 80 mls/hr IV .[id number] JUAN Stop: 11/11/24 14:29 Last Admin: 11/11/24 04:00 Dose: 80 mls/hr Metoclopramide HCl (Metoclopramide Hcl Inj 5 Mg/Ml 2 Ml Vial) 10 mg IV Q6H JUAN Stop: 12/10/24 13:29 Last Admin: 11/11/24 13:32 Dose: Not Given Mirtazapine (Mirtazapine Tab 15 Mg Tab) 15 mg PO HS JUAN Stop: 12/10/24 20:59 Last Admin: 11/10/24 19:52 Dose: 15 mg Ondansetron HCl (Ondansetron Inj 2 Mg/Ml 2 Ml Vial) 4 mg IV Q4H PRN PRN Reason: Nausea Stop: 12/10/24 12:44 PG Care Time/CCT Total # of Minutes Spent Total Time Spent with Patient: Total time spent is greater than 50% in coordination of care (as documented) at patient's floor/unit and/or counseling patient: Coding Level of Care Code 35392 SUB INP/OBS CARE 08/16MIN Diagnoses Nausea & vomiting R11.2 Small cell lung cancer in adult C34.90 Neutropenia D70.9 Type II diabetes mellitus E11.9 Hypokalemia E87.6 Hypomagnesemia E83.42 Hypophosphatemia E83.39 Time Spent (min) 25
[2024-11-11] MEDS ORDERED: MAG SULFATE 50% 1GM/2ML VIAL IV ONE (14:30)
[2024-11-11] MEDS: POTASSIUM CHLORIDE 20 MEQ/15 ML UDC PO STA (14:41)
[2024-11-11] MEDS: MAGNESIUM SULFATE / D5W 1 GM/100 ML BAG IV SCH (14:42)
[2024-11-11 16:11] VITALS: BP 130/64; RESP 16; TEMP 98.1; O2SAT 95
[2024-11-11] MEDS: METOCLOPRAMIDE HCL 10 MG TABLET PO SCH (16:20)
[2024-11-11 16:31] LABS: Calcium 8.3 mg/dl (8.6-10.3); Magnesium 2.2 mg/dl (1.7-2.4); Potassium 3.1 mmol/L (3.5-5.1)
[2024-11-11 16:37] LABS: BUN Creatinine Ratio 9.8 (10-20); Creatinine Clr Calc Pharmacy 39.9 ml/min
[2024-11-11] MEDS: POT PHOSPHATE MONOBASIC W/ SOD TAB PO SCH (16:50)
[2024-11-11] MEDS: POTASSIUM CHLORIDE CRTAB 20 MEQ TABCR PO STA (16:50)
--- NOTE | 2024-11-11 16:59 | Discharge Summary ---
Discharge Summary Date of Service November 11, 2024 Principal Dx & Hospital Course #1 = Principal Diagnosis (1) Nausea & vomiting: Status post Reglan every 6 hours IV Her nausea vomiting improved by November 11 She was discharged home today She will be on standing dose of oral Reglan for the next 24 hours KCl for hypokalemia (2) Small cell lung cancer in adult: Status post surgery at [facility] she see Dr. Will GONZALEZ) oncology Status post wedge resection and lymph node removal of the right upper lobe on August 28, 2024 She have infection in the incisional area She is getting cisplatin plus etoposide Follow-up with oncology (3) Neutropenia: (4) Type II diabetes mellitus: (5) Hypokalemia: She will be discharged with KCl 20 mEq for 10-day She was advised to recheck her potassium in 48 hours (6) Hypomagnesemia: Her magnesium improved to 1.6 she is status post IV magnesium 2 mg (7) Hypophosphatemia: Plan This is a 74-year-old female with past medical history of COPD, small cell lung cancer, type 2 diabetes who presented to the emergency department on with a chief complaint of refractory nausea/vomiting. While in the ED patient was found to have a low WBC of 1.62 with neutrophil 0.14. Hemoglobin and platelet count both stable. BMP with low potassium of 3.2. Creatinine was 1.36 which has improved from 11/04. (1.75). Phosphorus was low at 2.2 and magnesium was low at 1.1. Patient's electrolytes were replaced, she was given IV fluids, and a dose of Zofran. overall plan started on diet on 11/11, c/w reglan IV replacement kcl with IV and oral giving her magnesium IV today given low magnesium of 1.6 she was seen by PT on 11/11 and doing well DC home at 6 PM November 11 # chemo related nausea and vomiting recent chem 10/28-10/30. She has been persistently vomiting since 11/02. s/p IVF & antiemetics at oncology clinic on 11/04. improving reglan 10mg IV [id number] schedule and on 11/11, started diet check QTc interval Start IV PPI BID. Zofran 1st line, Phenergan 2nd line prn for refractory nausea/vomiting Obtain EKG to evaluate QTc interval with you QTc interval less than 500 hypokalemia potassium of 2.7, s/p IV potassium replacement oral replacement She was discharged with KCl 20 mEq daily for 10-day PATI (baseline of 0.7--> 1.36) s/p IV fluid stable; improved to 1.0 on November 11 hypomagnesium-giving her replacement her magnesium is 1.6 on 11/11 will give another magnesium 2mg IV #SCLC/Neutropenia newly diagnosed SCLC w/ partial right lobectomy in 08/2024 @ [facility]. Started Chemotherapy w/ cisplatin/etoposide on 10/28 Follows w/ Dr. Simms outpatient CBC w/ low WBC of 1.26 w/ neutrophil of 0.14 Neutropenic precautions Oncology consulted, appreciate recommendations. Continue home inhalers #Type 2 DM (a1c of 6.6) Hold SSI given poor appetite & NPO status Consider SSI coverage if BG start to be consistently elevated. Chronic conditions: Mental health: Mirtazapine HLD: statin hold while NPO DVT prophylaxis: Heparin BID Code: DNR/DNI Admission HPI Per Admitting Provider This is a 74-year-old female with past medical history of COPD, small cell lung cancer, type 2 diabetes who presented to the emergency department on with a chief complaint of refractory nausea/vomiting. The patient was seen and examined this morning with family at bedside. Patient reports that she has been having ongoing nausea and vomiting since her first round of chemotherapy. Patient was recently diagnosed with small cell lung cancer and had a partial right lobectomy at [facility] in August 2024. She had chemotherapy infusions on October 28, , and . She then developed vomiting afterwards and has had persistent symptoms since about November 02. She was seen back in the oncology clinic on November 04 in which she had IV fluids and antiemetics given to her. Despite this she continues to experience symptoms. She is having about 5-10 episodes of emesis daily. She is having issues keeping food down. She states that since chemotherapy she has kept very little food keith n. Her last episode of emesis was just prior to my arrival. She states that she is able to drink small sips of water and that typically does stay down. She denies any abdominal pain. She reports that she was constipated during this time but this morning had an episode of diarrhea. She denies any hematemesis. She denies any fevers, chills, dizziness. She denies any chest pain or shortness of breath. Denies any lower extremity edema. Denies any urinary complaints. Code discussion to take place with the patient and she did report that she would like to be a DNR/DNI. While in the ED patient was found to have a low WBC of 1.62 with neutrophil 0.14. Hemoglobin and platelet count both stable. BMP with low potassium of 3.2. Creatinine was 1.36 which has improved from 11/04. (1.75). Phosphorus was low at 2.2 and magnesium was low at 1.1. Patient's electrolytes were replaced, she was given IV fluids, and a dose of Zofran. Hospital course She have history of COPD small cell lung cancer status post wedge resection and lymph node dissection in August 2024 at [place] She is following with oncologist and getting cisplatin and etoposide. She had infusion on OctoberO October 30, In oncology clinic on November 04 history of IV fluid, she was admitted for IV metoclopramide she is tolerating her breakfast and lunch Her hypokalemia improved with IV repletion to 3.1 She has no abdominal pain no diarrhea she was DC home with Reglan 10 mg every 6 hours scheduled We discussed at length that she need to stay on the antinausea's medicine even regardless of sensation of nausea She was discharged with KCl 20 mEq for 10-day Cleared by physical therapy, discharged home on November 11 Discharge Exam VITALS: Reviewed. WEIGHT/BMI reviewed. GEN: non-toxic appearing -Head: NC/AT; -Eyes: PERRL, EOM -Nose: Normal nares. CV: RRR, no m/r/g. LUNGS: CTAB, no w/r/c. scar healing from wedge resection ABD: Soft, NT/ND, NBS, no masses or organomegaly. : N/A SKIN: Warm, well perfused. No skin rashes or abnormal lesions. MSK: No deformities, Normal gait. EXT: No clubbing, cyanosis, or edema. NEURO: AAOx3 . Discharge Plan Discharge Items Patient Disposition: Home - Self-Care Reason For Visit: NAUSEA/VOMITING Discharge Diagnosis: chemotherapy related nausea vomiting hypokalemia, low Magnesum PATI Activity: Per Instructions section Lifting: Gradually increase as tolerated Exercise/Sports: Gradually increase as tolerated Non-emergency contact: Primary Care Provider and Oncologist Call non-emergency contact if: your symptoms worsen and you have a fever Follow-up/Referrals: Kaye Kumar CRNP [Primary Care Provider] - Diet: Regular Diet Texture: Easy to Chew Diet Comment: soft diet in the next 48 hours, avoid spicy food, avoid unfamiliar food Addtl Attending Provider Instructions: tomorrow you will take reglan (anti-nausea medicine) every 8 hours to prevent nausea and vomiting you will remained take potassium daily for next 7-10 days (take it with lunch to prevent stomach upset) recheck your BMP, magnesium on Addtl Actuarial Science Teacher Provider Instructions: return to emergency with severe abdominal pain seek medical attention if you have dizziness, confusion or fever. Pending Studies at Discharge: Yes Studies:: repeat BMP, phosphate and magnesium in 48-72 hours Stand-Alone Forms: [facility] [employer], Smoking Cessation Medications and DC Order Prescriptions: New metoclopramide HCl [Reglan] 10 mg tablet 10 mg PO Q6H 7 Days Qty: 28 0RF potassium chloride 20 mEq/15 mL liquid 20 meq PO DAILY 10 Days Qty: 150 0RF Rx Instructions: take daily with lunch Continued rosuvastatin 20 mg tablet 20 mg PO HS Qty: 100 3RF Rx Instructions: insurance requests 100 day supply albuterol sulfate 90 mcg/actuation HFA aerosol inhaler 2 puff inhalation Q6H PRN (Reason: shortness of breath or wheezing) Qty: 8.5 5RF ipratropium-albuterol 0.5 mg-3 mg(2.5 mg base)/3 mL solution for nebulization 3 ml inhalation Q4H PRN (Reason: wheezing) Qty: 180 1RF mirtazapine 15 mg tablet 15 mg PO HS (DME) nebulizer accessories Kit See Rx Instructions .ROUTE .MEDSUPPLY Qty: 1 0RF Rx Instructions: As directed (DME) nebulizer and compressor Device See Rx Instructions .ROUTE .MEDSUPPLY Qty: 1 0RF Rx Instructions: As directed, every 4-6 hours as needed Stiolto Respimat 2.5-2.5 mcg/actuation mist 2 puff inhalation QAM Qty: 4 4RF aspirin 81 mg Tablet,Delayed Release (Dr/Ec) 81 mg PO HS Rx Instructions: Unable to verify OTC meds at this date/time. omeprazole 20 mg capsule,delayed release(DR/EC) 20 mg PO BID Held ondansetron 4 mg tablet,disintegrating 4 mg PO Q8H PRN (Reason: nausea and vomiting) 5 Days Qty: 30 1RF Hold Instructions: Resume on 11/15/24. Discharge Orders: Discharge Order (Routine); Ordered 11/11/24 Ordered By: Whitney Pérez/Other Patient Handouts: Hypokalemia Dc, Hypomagnesemia Dc, ED Diet Vomiting Diarrhea Admission Data Admit Date/Time: 11/10/24 12:55 Attending Provider: Whitney Rivera Admit Provider: Lester Egan Primary Care Provider: Kaye Kumar Other Providers: Lester Egan; Monica Steinberg; Kelly Delvalle; Will Simms; Nina Abdalla; Tarsha Cano; Kristofer Cornejo; Nayely Cervantes; Elizabeth,Anika Attending Hospital Stay Data Consultations 11/10/24 12:31 ED Decision to Admit Stat 11/10/24 13:05 Consult Oncology Routine Diagnostic Imagining Performed BMP magnesium and phosphate Pending Results Patient Have Any Pending Studies at Discharge: Yes Discharge Instructions Given to Patient (Per Discharging Provider) tomorrow you will take reglan (anti-nausea medicine) every 8 hours to prevent nausea and vomiting you will remained take potassium daily for next 7-10 days (take it with lunch to prevent stomach upset) recheck your BMP, magnesium on Total Time Total Time Spent Total Time Spent (In Minutes): 45 minutes niece updated at bedside Coding Level of Care Code 54758 INP/OBS DISCH >30 MIN Diagnoses Nausea & vomiting R11.2 Small cell lung cancer in adult C34.90 Neutropenia D70.9 Type II diabetes mellitus E11.9 Hypokalemia E87.6 Hypomagnesemia E83.42 Hypophosphatemia E83.39 Time Spent (min) 45
[2024-11-11 17:52] VITALS: PULSE 72
--- NOTE | 2024-11-12 10:21 | Electrocardiogram Report ---
Test Reason : Blood Pressure : */* mmHG Vent. Rate : 67 BPM Atrial Rate : 67 BPM P-R Int : 176 ms QRS Dur : 80 ms QT Int : 406 ms P-R-T Axes : 81 60 39 degrees QTcB Int : 429 ms Normal sinus rhythm Normal ECG When compared with ECG of 10-Nov-2024 16:19, Nonspecific T wave abnormality no longer evident in Lateral leads Confirmed by Gurwinder Contreras ([id number]) on 11/12/2024 10:21:23 AM Referred By: REFERRED SELF Confirmed By: Gurwinder Contreras
== END 2024-11-11 18:32 | disposition home or self-care (01) | DRG 392 ==
LOC: ED 09:55 → 2W 12:55 → SUATTDRO 12:55 → 2W 13:43

== ENCOUNTER 2024-11-25 10:49 | Inpatient (IN) ==
--- NOTE | 2024-11-25 11:27 | Emergency Department Note ---
Impression & Plan Splenic infarct, Small cell lung cancer in adult, Infarction of kidney, Abdominal pain, Vomiting ED Provider Note NAME: GUMARO LEAHY AGE: 74 SEX: F : 1950 ARRIVES VIA: Walk-In INFORMANT: Patient ED PROVIDER(S): Orestes Cooper DO CHIEF COMPLAINT: Abdominal pain HPI: Patient is a 74-year-old female who presents to the ER with a past medical history of chylothorax, COPD, diabetes, who presents to the ER for abdominal pain, nausea, vomiting and lung cancer s/p resection who presents to the ER for left lower quadrant abdominal pain. This started about 2 hours prior to arrival. Associated with nausea and vomiting. Denies any headache or change in vision. No new chest pain or shortness of breath. No dysuria, urgency or frequency. No other exacerbating or remitting factors. Last round of chemo was last . ADDITIONAL HISTORY OBTAINED: Per HPI Chronic Medical/Social Conditions Affecting Care: Per HPI PAST MEDICAL HISTORY:See Below PAST SURGICAL HISTORY:See Below FAMILY HISTORY:See Below SOCIAL HISTORY:See Below HOME MEDICATIONS:See Below ALLERGIES:See Below VITALS:See Below PHYSICAL EXAMINATION: GENERAL: Laying in bed on the right side moderate distress holding her left belly EYE EXAM: normal conjunctiva. PERRL and EOM's grossly intact. OROPHARYNX: no exudate, no erythema, lips, buccal mucosa, and tongue normal and mucous membranes are moist NECK: supple, no nuchal rigidity, no adenopathy, non-tender LUNGS: Clear to auscultation. Normal chest wall mechanics HEART: no murmurs, S1 normal and S2 normal ABDOMEN: abdomen soft, non-tender, normo-active bowel sounds, no masses, no rebound or guarding. UPPER EXTREMITIES: upper extremities are grossly normal. LOWER EXTREMITIES: No pitting edema. NEURO EXAM: Normal sensorium, cranial nerves II-XII grossly intact, normal speech, no gross weakness of arms, no gross weakness of legs. MEDICAL DECISION MAKING: Patient is a 74-year-old female who presents ER for the above-stated complaint. IV was established and blood work was obtained. Labs showed no significant leukocytosis. Mild anemia 11.3. INR 1.0. BMP with LFTs bilirubin and lipase is unremarkable. UA without signs of infection. Did have some hematuria. CT abdomen pelvis suggest subacute infarcts of the spleen as well as kidneys. Duplex of the lower extremities were ordered and were unremarkable. There is improving pneumothorax. Patient was given IV fluids, morphine, Zofran and Reglan. She still had some intermittent vomiting. Case was discussed with hospitalist for further evaluation management treatment. She denies any brain bleeds, coughing up blood, vomiting blood or urinating blood. No trauma or recent surgery other than low back to mi which was performed in mid August. I discussed this with the hospitalist Dr. Potter and in conjunction with them I elected to start IV heparin drip and bolus. Patient was updated bedside. Consults/Care Managements Discussions: Per [facility] Triage Nursing notes reviewed. Limited review of prior medical records performed Vital Signs: reviewed and remarkable for no significant abnormalities Differential diagnosis: Differential diagnoses includes but is not limited to gastritis, peptic ulcer disease, GERD, gallbladder disease, pancreatitis, small bowel obstruction, appendicitis, diverticulitis, hernia, urinary tract infection, torsion, perforation, trauma, infectious. ER treatment provided: See below Diagnostics interpreted by me include EKG and cardiac monitoring as listed below: -Cardiac Monitoring: An order was placed for continuous cardiac monitoring. The monitor shows a rate of 70 with sinus rhythm. -ECG: none -Laboratory studies:Interpreted by me as stated above in MDM and shown below. Imaging studies: Xrays: As interpreted by me: Portable AP upright 1 view of the chest shows no focal infiltrate Radiology found improving pneumothorax CTs show: CT abdomen pelvis as described above Procedures:none Critical Care: I have personally spent 33 minutes of critical care time in the direct management of this patient. This includes bedside care, interpretation of diagnostic studies, and testing, discussion with consultants, patient, and family members, and other required patient management activities. This 33 minutes is in excess of all separately billable procedures. Past Med/Surg History Problem List (Updated 11/25/24 @ 17:10 by Orestes Cooper DO) Vomiting (Acute) Abdominal pain (Acute) Infarction of kidney (Acute) Splenic infarct (Acute) Renal infarct Splenic infarct Chylothorax determined by thoracentesis Pleural effusion Perforation of tympanic membrane (Acute) Electrolyte abnormality (Acute) Chemotherapy induced neutropenia (Acute) Chemotherapy induced nausea and vomiting (Acute) Acute dehydration (Acute) Nausea & vomiting (Acute) Hypophosphatemia Hypomagnesemia Hypokalemia Neutropenia Nausea & vomiting Warthin's tumor Ex-smoker Abnormal positron emission tomography (PET) scan Small cell lung cancer in adult (Acute) Chronic bronchitis COPD with emphysema Pulmonary nodules/lesions, multiple Type II diabetes mellitus Multinodular thyroid Hyperlipidemia Medical History Small cell lung cancer in adult dx 07/2024, sx and will begin chemo 10/28/24 Nausea and vomiting after administration of anesthetic agent History of depression "only when her in 1992" Type II diabetes mellitus pt denies, stated "she has always has been borderline" Multiple pulmonary nodules Multinodular thyroid Hyperlipidemia COPD with emphysema Chronic bronchitis Cervical disc disease hx Surgical History History of bronchoscopy 07/2024, [facility] Status post lung surgery (08/28/24) Right lung partial, lymph nodes, [facility] Hx of cervical spine surgery 2000, cervical disectomy, unsure of level, no ROM limitations Family History Brother Skin cancer Cancer Sister Colorectal cancer Diabetes Cancer Mother Myocardial infarction Diabetes Heart disease Father Myocardial infarction Diabetes Heart disease Denies family history of Sudden Ovarian cancer Prostate cancer Breast cancer Social History Smoking Status: Former smoker Tobacco Type: Cigarettes Age Started Using Tobacco: 18; Age Quit Using Tobacco: 74; packs per day: 1.5; Second Hand Exposure: No; Do You Dip or Chew Tobacco: No; Hx Alcohol Use: No Hx Substance Use: No Preferred Language: Indonesian Communication Ability: Effective Hearing Ability: Hard of Hearing Furnace Filler Required: No Beliefs That Will Affect Care: None marital status: / Current Living Situation: Alone current occupational status: retired How many Children do You have: 2 Feels Safe at Home: Yes Diet: regular caffeine: Yes during the past year weight has: remained stable Dental Care, Regularly: No Physical Activity Frequency: Daily Physical Activity Frequency Comment: Walking, active around the house Seatbelt Use: always Sunscreen Use: No Assistive Devices: Walker Allergies Allergies Allergy/AdvReac Type Severity Reaction Status Date / Time No Known Allergies Allergy Verified 11/25/24 14:55 Home Meds Home Medications Medication Instructions Recorded Confirmed aspirin 81 mg tablet,delayed 81 mg PO HS 10/15/24 11/25/24 release mirtazapine 15 mg tablet 15 mg PO HS 10/15/24 11/25/24 omeprazole 20 mg capsule,delayed 20 mg PO BID 11/10/24 11/25/24 release lactobacillus combination no.4 3 3 cell PO QAM 11/25/24 11/25/24 billion cell capsule (Probiotic) Previous Rx's Medication Instructions Recorded nebulizer accessories #1 ea 04/21/24 nebulizer and compressor #1 ea 04/21/24 ondansetron 4 mg disintegrating 4 mg PO Q8H PRN nausea and 10/02/24 tablet vomiting 5 days #30 tabs rosuvastatin 20 mg tablet 20 mg PO HS #100 tabs 11/03/24 magnesium oxide 400 mg PO DAILY #90 tabs 11/13/24 albuterol sulfate 90 mcg/actuation 2 puff inhalation Q6H PRN 11/25/24 aerosol inhaler shortness of breath or wheezing #8.5 grams ipratropium 0.5 mg-albuterol 3 mg 3 ml inhalation Q4H PRN wheezing 11/25/24 (2.5 mg base)/3 mL nebulization #180 mL soln tiotropium 2.5 mcg-olodaterol 2.5 2 puff inhalation QAM #4 grams 11/25/24 mcg/actuation mist for inhalation (Stiolto Respimat) Results & Data (ED) Vital Signs Vital Signs - 24 hr 11/25/24 10:57 11/25/24 12:01 11/25/24 12:04 Temperature 35.9 C L 36.7 C Temperature Source Temporal Artery Scan Oral Pulse Rate 72 Pulse Rate [Right Finger] 83 Pulse Rhythm Regular Pulse Strength Normal Respiratory Rate 18 14 Respiratory Effort / Characteristics Non-Labored Non-Labored Spontaneous Respiratory Depth Normal Normal Respiratory Pattern Regular Blood Pressure 151/81 H Blood Pressure [Right Arm] 157/79 H Blood Pressure Mean 104 Blood Pressure Mean [Right Arm] 105 Blood Pressure Position Sitting Pulse Oximetry 100 95 Oxygen Delivery Method Room Air Room Air Sepsis Recent Fever Within 48 Hours No Sepsis New/Unexplained Change in Mental Status N/A Sepsis Action Taken by Nursing No Action Required 11/25/24 12:16 11/25/24 14:00 11/25/24 16:00 Temperature Temperature Source Pulse Rate 83 Pulse Rate [Right Finger] 89 87 Pulse Rhythm Pulse Strength Respiratory Rate 18 20 Respiratory Effort / Characteristics Non-Labored Spontaneous Non-Labored Spontaneous Respiratory Depth Normal Normal Respiratory Pattern Blood Pressure Blood Pressure [Right Arm] 138/70 136/79 Blood Pressure Mean Blood Pressure Mean [Right Arm] 92 98 Blood Pressure Position Pulse Oximetry 96 95 Oxygen Delivery Method Room Air Room Air Sepsis Recent Fever Within 48 Hours Sepsis New/Unexplained Change in Mental Status Sepsis Action Taken by Nursing 11/25/24 16:23 Temperature Temperature Source Pulse Rate 85 Pulse Rate [Right Finger] Pulse Rhythm Pulse Strength Respiratory Rate Respiratory Effort / Characteristics Respiratory Depth Respiratory Pattern Blood Pressure Blood Pressure [Right Arm] Blood Pressure Mean Blood Pressure Mean [Right Arm] Blood Pressure Position Pulse Oximetry Oxygen Delivery Method Sepsis Recent Fever Within 48 Hours Sepsis New/Unexplained Change in Mental Status Sepsis Action Taken by Nursing Laboratory Data 11/25/24 11:37 11/25/24 11:37 Lab Results 11/25/24 11/25/24 Range/Units 11:28 11:37 WBC 9.32 (4.8-10.8) K/ul RBC 3.81 L (4.20-5.40) M/uL Hgb 11.3 L (12.0-16.0) g/dl Hct 34.6 L (37.0-47.0) % MCV 90.8 (80.0-100.0) fL MCH 29.7 (25.0-34.0) pg MCHC 32.7 (32.0-36.0) g/dL RDW Std Deviation 41.9 (36.4-46.3) fL RDW Coeff of Wilfred 12.7 (11.5-14.5) % Plt Count 259 (130-400) K/uL MPV 9.9 (9.4-12.4) fL Immature Gran % (Auto) 2.3 % Neut % (Auto) 58.1 % Lymph % (Auto) 34.5 % [place] % (Auto) 3.4 % Eos % (Auto) 0.9 % Baso % (Auto) 0.8 % Neut # (Auto) 5.42 (1.40-6.50) K/uL Lymph # (Auto) 3.22 (1.20-3.40) K/uL [place] # (Auto) 0.32 (0.11-0.59) K/uL Eos # (Auto) 0.08 (0.00-0.50) K/uL Baso # (Auto) 0.07 (0.00-0.20) K/uL Immature Gran # (Auto) 0.21 H (0.01-0.20) K/uL Dohle Bodies 1+ PT 10.7 (9.0-12.0) Seconds INR 1.0 (0.9-1.1) APTT < 20 L (21-31) Seconds PTT Ratio 0.7 Sodium 141 (136-145) mmol/L Potassium 3.6 (3.5-5.1) mmol/L Chloride 107 (98-107) mmol/L Carbon Dioxide 24 (21-32) mmol/L Anion Gap 10 (3-11) BUN 25 H (6-23) mg/dl Creatinine 0.94 (0.6-1.2) mg/dl Est Cr Clr Drug Dosing 42.7 ml/min eGFR 64.47 BUN/Creatinine Ratio 26.6 H (10-20) Glucose 134 H (70-99(Fasting)) mg/dl Calcium 9.3 (8.6-10.3) mg/dl Total Bilirubin 0.6 (0.2-1.0) mg/dl AST 15 (13-39) U/L ALT 12 (7-52) U/L Alkaline Phosphatase 112 H (34-104) U/L Total Protein 7.2 (6.0-8.3) gm/dl Albumin 3.9 (3.4-5.0) gm/dl Globulin 3.3 (2.5-4.0) gm/dl Albumin/Globulin Ratio 1.2 (0.9-2) Lipase 15 (11-82) U/L Urine Color Yellow Urine Appearance Clear (Clear) Urine pH 6.5 (4.5-7.5) Ur Specific [place] 1.021 (1.000-1.030) Urine Protein Trace H (Negative) Urine Glucose (UA) Negative (Negative) Urine Ketones Negative (Negative) Urine Blood Negative (Negative) Urine Nitrite Negative (Negative) Urine Bilirubin Negative (Negative) Urine Urobilinogen Negative (Negative) Ur Leukocyte Esterase Trace H (Negative) Urine WBC (Auto) 0-5 (0-5) /hpf Urine RBC (Auto) 11-20 H (0-2) /hpf U Hyaline Cast (Auto) 0-2 (0-2) /lpf U Epithel Cells (Auto) 3-5 H (0-2) /hpf Urine Bacteria (Auto) None Seen (None Seen) Administered Medications Heparin Sodium/Dextrose (Heparin 83699 Unit/500 Ml D5w) 25,000 units in 500 mls @ 18 mls/hr IV .Q24H JUAN; Protocol Stop: 12/25/24 13:44 Last Admin: 11/25/24 14:19 Dose: 900 units/hr, 18 mls/hr Documented By: CTK Co-signed By: DANIELLA Discontinued Medications Heparin Sodium (Porcine) (Heparin Sod (Porcine) 1000 Unit/Ml) 1 units IV NOW ONE Stop: 11/25/24 13:32 Last Admin: 11/25/24 14:19 Dose: 4,000 units Documented By: CTK Co-signed By: DANIELLA Sodium Chloride (Nss) 1,000 mls @ 999 mls/hr IV .Q1H1M ONE Stop: 11/25/24 12:21 Last Infusion: 11/25/24 13:55 Dose: Infused Documented By: Admin: 11/25/24 11:45 Dose: 999 mls/hr Documented By: MMF Promethazine HCl (Phenergan) 25 mg in 51 mls @ 204 mls/hr IV NOW STA Stop: 11/25/24 14:58 Last Infusion: 11/25/24 15:58 Dose: Infused Documented By: Admin: 11/25/24 15:37 Dose: 204 mls/hr Documented By: KRISK Ioversol (Optiray 320 100ml) 93 ml IV ONCE ONE Stop: 11/25/24 12:37 Last Admin: 11/25/24 12:36 Dose: 93 ml Documented By: KSF Metoclopramide HCl (Metoclopramide Hcl Inj 5 Mg/Ml 2 Ml Vial) 10 mg IV NOW STA Stop: 11/25/24 13:15 Last Admin: 11/25/24 13:17 Dose: 10 mg Documented By: CTK Morphine Sulfate (Morphine Sulfate 4 Mg/Ml 1 Ml Carp\\Vial) 4 mg IV NOW STA Stop: 11/25/24 11:22 Last Admin: 11/25/24 11:45 Dose: 4 mg Documented By: MMF Morphine Sulfate (Morphine Sulfate 4 Mg/Ml 1 Ml Carp\\Vial) 4 mg IV NOW STA Stop: 11/25/24 13:05 Last Admin: 11/25/24 13:18 Dose: 4 mg Documented By: KRISK Ondansetron HCl (Ondansetron Inj 2 Mg/Ml 2 Ml Vial) 4 mg IV NOW STA Stop: 11/25/24 11:22 Last Admin: 11/25/24 11:45 Dose: 4 mg Documented By: MMF Imaging Data Radiologist's Impression: Abdomen/Pelvis CT 11/25/24 11:[address] WITH IV CONTRAST CT DOSE: 611.07 mGy.cm HISTORY: llq abd pain TECHNIQUE: Multiaxial CT images of the abdomen and pelvis were performed following the IV administration of 90 cc of Optiray, A dose lowering technique was utilized adhering to the principles of ALARA. COMPARISON STUDY: 10/22/2024 FINDINGS: ABDOMEN: Liver, gallbladder, pancreas, and adrenal glands are unremarkable. There is an interval wedge shaped area of hypodensity and decreased enhancement at the posterior aspect of the spleen consistent with splenic infarction involving approximately 20% of the spleen. There are a few interval small areas of wedge-shaped hypodensity and decreased enhancement superiorly and inferiorly at the left kidney and inferiorly at the right kidney consistent with tiny renal infarctions. There are severe diffuse atherosclerotic calcifications with areas of noncalcified plaque. There is mild narrowing of the distal aortic lumen due to noncalcified plaque. There is at least mild narrowing at the origin of the right renal artery. There is at least mild narrowing at the origin of the celiac artery. There is occlusion of the left common iliac artery with reconstitution at the left external iliac artery. Pelvis: Uterus and adnexa are grossly unremarkable. Urinary bladder is nondistended. There is sigmoid diverticulosis. No acute diverticulitis. There is mild retained stool. No bowel inflammation or obstruction. No free fluid or free air. No enlarged adenopathy. Osseous structures: No acute osseous findings. IMPRESSION: 1. Interval recent subacute small infarctions at the spleen and kidneys. 2. Atherosclerosis as described. 3. No other acute findings seen. Otherwise as described. ACT 112: Negative or not required by law. The above report was generated using voice recognition software. It may contain grammatical, syntax or spelling errors. Electronically signed by: Sebastien Auguste M.D. 11/25/2024 12:53 PM Chest X-Ray 11/25/24 11:21 XR chest 1V portable CLINICAL HISTORY: abd pain COMPARISON STUDY: 10/31/2024 FINDINGS: Heart size and pulmonary vasculature are normal. Stable surgical suture and mild scarring at the right midlung. Stable mild scarring at the left lung base. There is a small right apical pneumothorax, decreased in size. There is a possible small right pleural effusion, decreased. IMPRESSION: 1. Small right apical pneumothorax, decreased in size. Possible small right pleural effusion, decreased. 2. No other acute findings seen. ACT 112: Negative or not required by law. Electronically signed by: Sebastien Auguste M.D. 11/25/2024 12:17 PM Venous Doppler Study 11/25/24 13:05 BILATERAL LOWER EXTREMITY VENOUS DOPPLER CLINICAL HISTORY: ? dvt. Lung cancer. COMPARISON STUDY: No previous studies for comparison. TECHNIQUE: Sonography of the deep venous system of the bilateral lower extremities was performed. Compression and augmentation were evaluated. FINDINGS: The bilateral common femoral, superficial femoral and popliteal veins were compressible. Augmentation was normal. Flow was shown within the deep calf vessels. IMPRESSION: No evidence of deep venous thrombus within the bilateral lower extremities. ACT 112: Negative or not required by law. Electronically signed by: Thomas Giraldo M.D. 11/25/2024 2:22 PM Discharge Plan Visit Data Chief Complaint: Abdominal Pain Stated Complaint: VOMITING, LT SIDE ABD PAIN ED Provider: Orestes Cooper Discharge Problem: Splenic infarct, Small cell lung cancer in adult, Infarction of kidney, Abdominal pain, Vomiting Patient Disposition: Admitted As Inpatient Condition: Serious Forms Stand Alone Forms: My [facility] Prescriptions Prescriptions: No Action rosuvastatin 20 mg tablet 20 mg PO HS Qty: 100 3RF Rx Instructions: insurance requests 100 day supply magnesium oxide 400 mg magnesium tablet 400 mg PO DAILY Qty: 90 3RF mirtazapine 15 mg tablet 15 mg PO HS (DME) nebulizer accessories Kit See Rx Instructions .ROUTE .MEDSUPPLY Qty: 1 0RF Rx Instructions: As directed (DME) nebulizer and compressor Device See Rx Instructions .ROUTE .MEDSUPPLY Qty: 1 0RF Rx Instructions: As directed, every 4-6 hours as needed ipratropium-albuterol 0.5 mg-3 mg(2.5 mg base)/3 mL solution for nebulization 3 ml inhalation Q4H PRN (Reason: wheezing) Qty: 180 1RF albuterol sulfate 90 mcg/actuation HFA aerosol inhaler 2 puff inhalation Q6H PRN (Reason: shortness of breath or wheezing) Qty: 8.5 5RF Stiolto Respimat 2.5-2.5 mcg/actuation mist 2 puff inhalation QAM Qty: 4 7RF ondansetron 4 mg tablet,disintegrating 4 mg PO Q8H PRN (Reason: nausea and vomiting) 5 Days Qty: 30 1RF Hold Instructions: Resume on 11/15/24. aspirin 81 mg Tablet,Delayed Release (Dr/Ec) 81 mg PO HS Rx Instructions: Unable to verify OTC meds at this date/time. omeprazole 20 mg capsule,delayed release(DR/EC) 20 mg PO BID Probiotic 3 billion cell Capsule 3 cell PO QAM Referrals Referrals: Kaye Kumar CRNP [Primary Care Provider] - Discharge Problem: Abdominal pain Qualifiers: Abdominal location: unspecified location Qualified Code(s): R10.9 - Unspecified abdominal pain Vomiting Qualifiers: Vomiting type: unspecified Nausea presence: unspecified Qualified Code(s): R 11.10 - Vomiting, unspecified
[2024-11-25] MEDS: SODIUM CHLORIDE 0.9% 1,000 ML IV ONE (11:45)
[2024-11-25] MEDS: MoRPHine SULFATE 4 MG/ML 1 ML CARP\\VIAL IV STA ×2 (11:45→13:18)
[2024-11-25] MEDS: ONDANSETRON INJ 2 MG/ML 2 ML VIAL IV STA (11:45)
[2024-11-25 12:01] LABS: Hematocrit (blood only) 34.6 % (37.0-47.0); Hemoglobin 11.3 g/dl (12.0-16.0); Mean Corpuscular Hemoglobin 29.7 pg (25.0-34.0); Mean Corpuscular Hgb Conc 32.7 g/dL (32.0-36.0); Mean Corpuscular Volume 90.8 fL (80.0-100.0); Mean Platelet Volume 9.9 fL (9.4-12.4); Platelet Count 259 K/uL (130-400); RDW Coefficient of Variation 12.7 % (11.5-14.5); RDW Standard Deviation 41.9 fL (36.4-46.3); Red Blood Count 3.81 M/uL (4.20-5.40)
[2024-11-25 12:13] LABS: Appearance Urine Clear (Clear); Bacteria Urine Automated None Seen (None Seen); Bilirubin Urine Negative (Negative); Blood Urine Negative (Negative); Cast Urine Automated 0-2 /lpf (0-2); Color Urine Yellow; Glucose Urine UA Negative (Negative); Ketones Urine Negative (Negative); Leukocyte Esterase Urine Trace (Negative); Nitrite Urine Negative (Negative); Protein Urine Trace (Negative); Specific Gravity Urine 1.021 (1.000-1.030); Urobilinogen Urine Negative (Negative); WBC Urine Automated 0-5 /hpf (0-5); pH Urine 6.5 (4.5-7.5)
--- NOTE | 2024-11-25 12:18 | XRay Report ---
XR chest 1V portable CLINICAL HISTORY: abd pain COMPARISON STUDY: 10/31/2024 FINDINGS: Heart size and pulmonary vasculature are normal. Stable surgical suture and mild scarring a t the right midlung. Stable mild scarring at the left lung base. There is a small right apical pneumo thorax, decreased in size. There is a possible small right pleural effusion, decreased. IMPRESSION: 1. Small right apical pneumothorax, decreased in size. Possible small right pleural effusion, decreas ed. 2. No other acute findings seen. ACT 112: Negative or not required by law. Electronically signed by: Sebastien Auguste M.D. 11/25/2024 12:17 PM
[2024-11-25 12:22] LABS: Albumin Globulin Ratio 1.2 (0.9-2); Albumin Level 3.9 gm/dl (3.4-5.0); BUN Creatinine Ratio 26.6 (10-20); Bilirubin,Total 0.6 mg/dl (0.2-1.0); Calcium 9.3 mg/dl (8.6-10.3); Creatinine Clr Calc Pharmacy 42.7 ml/min; Globulin 3.3 gm/dl (2.5-4.0); Potassium 3.6 mmol/L (3.5-5.1); Total Protein 7.2 gm/dl (6.0-8.3)
[2024-11-25 12:25] LABS: Basophils # (auto) 0.07 K/uL (0.00-0.20); Basophils % (auto) 0.8 %; Dohle Bodies 1+; Eosinophils # (auto) 0.08 K/uL (0.00-0.50); Eosinophils % (auto) 0.9 %; Immature Granulocytes # (auto) 0.21 K/uL (0.01-0.20); Immature Granulocytes % (auto) 2.3 %; Lymphocytes # (auto) 3.22 K/uL (1.20-3.40); Lymphocytes % (auto) 34.5 %; Monocytes # (auto) 0.32 K/uL (0.11-0.59); Monocytes % (auto) 3.4 %; Neutrophils # (auto) 5.42 K/uL (1.40-6.50); Neutrophils % (auto) 58.1 %; White Blood Count 9.32 K/ul (4.8-10.8)
[2024-11-25] MEDS: OPTIRAY 320 100ml IV ONE (12:36)
--- NOTE | 2024-11-25 12:54 | CT Scan Report ---
ABDOMEN AND PELVIS CT WITH IV CONTRAST CT DOSE: 611.07 mGy.cm HISTORY: llq abd pain TECHNIQUE: Multiaxial CT images of the abdomen and pelvis were performed following the IV administrat ion of 90 cc of Optiray, A dose lowering technique was utilized adhering to the principles of ALARA. COMPARISON STUDY: 10/22/2024 FINDINGS: ABDOMEN: Liver, gallbladder, pancreas, and adrenal glands are unremarkable. There is an interval wedg e shaped area of hypodensity and decreased enhancement at the posterior aspect of the spleen consiste nt with splenic infarction involving approximately 20% of the spleen. There are a few interval small areas of wedge-shaped hypodensity and decreased enhancement superiorly and inferiorly at the left kid katerina and inferiorly at the right kidney consistent with tiny renal infarctions. There are severe diffu se atherosclerotic calcifications with areas of noncalcified plaque. There is mild narrowing of the d istal aortic lumen due to noncalcified plaque. There is at least mild narrowing at the origin of the right renal artery. There is at least mild narrowing at the origin of the celiac artery. There is occ lusion of the left common iliac artery with reconstitution at the left external iliac artery. Pelvis: Uterus and adnexa are grossly unremarkable. Urinary bladder is nondistended. There is sigmoid diverticulosis. No acute diverticulitis. There is mild retained stool. No bowel inflammation or obst ruction. No free fluid or free air. No enlarged adenopathy. Osseous structures: No acute osseous findings. IMPRESSION: 1. Interval recent subacute small infarctions at the spleen and kidneys. 2. Atherosclerosis as described. 3. No other acute findings seen. Otherwise as described. ACT 112: Negative or not required by law. The above report was generated using voice recognition software. It may contain grammatical, syntax o r spelling errors. Electronically signed by: Sebastien Auguste M.D. 11/25/2024 12:53 PM
[2024-11-25] MEDS: METOCLOPRAMIDE HCL INJ 5 MG/ML 2 ML VIAL IV STA (13:17)
[2024-11-25 13:49] LABS: Partial Thromboplastin Ratio 0.7; Prothrombin Time 10.7 Seconds (9.0-12.0)
[2024-11-25 13:56] LABS: Partial Thromboplastin Time < 20 Seconds (21-31)
[2024-11-25] MEDS: HEPARIN 25000 UNIT/500 ML D5W 25,000 UNITS/500 ML BAG IV SCH (14:19)
[2024-11-25] MEDS: HEPARIN SOD (PORCINE) 1000 UNIT/ML IV ONE (14:19)
--- NOTE | 2024-11-25 14:24 | Ultrasound Report ---
BILATERAL LOWER EXTREMITY VENOUS DOPPLER CLINICAL HISTORY: ? dvt. Lung cancer. COMPARISON STUDY: No previous studies for comparison. TECHNIQUE: Sonography of the deep venous system of the bilateral lower extremities was performed. Co mpression and augmentation were evaluated. FINDINGS: The bilateral common femoral, superficial femoral and popliteal veins were compressible. A ugmentation was normal. Flow was shown within the deep calf vessels. IMPRESSION: No evidence of deep venous thrombus within the bilateral lower extremities. ACT 112: Negative or not required by law. Electronically signed by: Thomas Giraldo M.D. 11/25/2024 2:22 PM
[2024-11-25] MEDS: PROMETHAZINE 25 MG/51 ML BAG IV STA (15:37)
--- NOTE | 2024-11-25 17:00 | History & Physical Report ---
<Statement entered by Remedios Potter MD - 11/25/24 18:18> I have reviewed vital signs, chart notes, labs and imaging. I have personally seen, evaluated and examined the patient. I have also discussed the management of the patient with the RONDA and I agree with the exam findings documented in the history and physical examination and the documented assessment and plan unless otherwise stated below. This is a 74-year-old woman with small cell lung cancer resection of part of her right lung relatively recently and on chemotherapy who presents with sudden onset abdominal and left flank pain and nausea and vomiting on ED evaluation she has normal vital signs, mild anemia that is stable, normal creatinine CKD stage III, CT abdomen and pelvis notable for significant splenic infarct very small bilateral renal infarcts left common iliac occlusion with left external iliac artery reconstitution, aortic plaque. Chest x-ray makes note of a small right apical pneumothorax questionable right pleural effusion. I personally reviewed the chest x-ray film and agree with that interpretation. I personally reviewed the CT abdomen pelvis films and the splenic infarct and small bilateral renal infarcts are quite obvious, notably she does not have any pleural effusion visible on the CT. She denies any personal history of VTE and no history of stroke/TIA. She does not have a port or a central line. She is not having any leg pain or swelling. On my exam she is awake and alert, notable for left-sided abdominal and especially left flank/CVA tenderness. A/P: Multiple infarcts spleen and bilateral kidneysmay have had embolic or atheromatous shower, she is hypercoagulable because of her small cell lung cancer, we will treat this with blood thinners. Should be able to start apixaban in AM if no evidence of bleeding or worsening pneumothorax, which seems to be chronic at this point. Ordered AM CXR. 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 she currently has uncontrolled pain and nausea, timing of discharge will depend on her symptom control. Her oncologist is Dr. Simms Date of Service November 25, 2024 Assessment & Plan (1) Splenic infarct: (2) Renal infarct: (3) Small cell lung cancer in adult: (4) COPD with emphysema: (5) Type II diabetes mellitus: Plan 74-year-old female with past medical history of COPD, small cell lung cancer, type 2 diabetes, hyperlipidemia, depression. She presented to the ED with LLQ abdominal pain that began about 2 hours prior to her arrival in ED. She had associated N/V and flank pain. CT A/P revealed splenic infarction involving approximately 20% of the spleen, bilateral tiny renal infarctions, occlusion of the left common iliac artery with reconstitution at the left external iliac artery. Venous Doppler negative for DVTs bilaterally. #Splenic and renal infarcts - likely secondary to hypercoagulable state with active cancer Renal function stable, VSS Continue heparin bolus with drip started in ED. Can transition to Lovenox or Eliquis tomorrow 11/26/2024 if stable. Will need rn long term care anticoagulation on discharge Consider echocardiogram to evaluate for embolic source or valvular disease but will defer on admission Pain regimen with scheduled Tylenol 650 mg p.o. Q4H, morphine 2 mg IV Q4H PRN moderate pain, morphine 4 mg IV Q4H PRN severe pain #Small cell lung cancer / COPD S/p partial right lobectomy in 08/2024 at [facility]. Started Chemotherapy with cisplatin/etoposide on 10/28. Follows with Dr. Simms from [facility] outpatient Normal WBC and neutrophil count on admission CXR on admission noted small right pneumothorax, decreased in size. Stable on room air Continue home inhalers/regimen #Type 2 DM A1c 6.6% in 07/2024. Managed with diet at home Non-fasting BSG 134 on admission - will defer SSI on admission Consider SSI coverage if blood sugars start to be consistently elevated #Depression - Continue Mirtazapine 15 mg HS #Hyperlipidemia - Continue Rosuvastatin 20 mg HS VTE PPx: Heparin drip as above. Patient takes Aspirin 81 mg daily for primary prevention - this can likely be discontinued on discharge as she will need rn long term care anticoagulation and has no history of LA, TIA, stroke. CODE STATUS: DNR/DNI Discussed with son at bedside Reviewed outpatient records History of Present Illness Chief Complaint: Abdominal pain Primary Care Provider: CRISTINA Dupont Astrid is a pleasant 74-year-old female with past medical history of COPD, small cell lung cancer, type 2 diabetes, hyperlipidemia, depression. She presented to the ED with abrupt onset of left-sided flank pain with associated nausea and vomiting. Her son is at bedside. She reports she felt at her baseline health this morning, went to her pulmonology appointment outpatient with Dr. Paul, then went to [facility] and that is when her symptoms started and prompted her to come to the ED for further evaluation. Currently, she endorses 6/10 pain and mild nausea at rest, but notes her nausea significantly worsens with any movement. Patient reports that she took all of her regular morning medications today; no recent change in medications. She is unsure why she takes baby Aspirin daily, but denies history of LA, TIA, stroke, so I suspect this is for primary prevention. She does not use supplemental oxygen at baseline. No CPAP at night. Vitals on admission are stable and WNL. Labs on admission are significant for mild anemia with hgb of 11.3 (stable from October). WBC, platelets, electrolytes, renal function, LFTs stable. CT A/P revealed splenic infarction involving approximately 20% of the spleen, bilateral tiny renal infarctions, occlusion of the left common iliac artery with reconstitution at the left external iliac artery. Venous Doppler negative for DVTs bilaterally. We discussed code status, she wishes to be DNR/DNI. Allergies Allergy/AdvReac Type Severity Reaction Status Date / Time No Known Allergies Allergy Verified 11/25/24 14:55 Home Medications Medication Instructions Recorded Confirmed Type nebulizer accessories #1 ea 04/21/24 10/02/24 Rx nebulizer and compressor #1 ea 04/21/24 10/02/24 Rx ondansetron 4 mg disintegrating 4 mg PO Q8H PRN nausea and 10/02/24 11/25/24 Rx tablet vomiting 5 days #30 tabs aspirin 81 mg tablet,delayed 81 mg PO HS 10/15/24 11/25/24 History release mirtazapine 15 mg tablet 15 mg PO HS 10/15/24 11/25/24 History rosuvastatin 20 mg tablet 20 mg PO HS #100 tabs 11/03/24 11/25/24 Rx omeprazole 20 mg capsule,delayed 20 mg PO BID 11/10/24 11/25/24 History release magnesium oxide 400 mg PO DAILY #90 tabs 11/13/24 11/25/24 Rx albuterol sulfate 90 mcg/actuation 2 puff inhalation Q6H PRN 11/25/24 11/25/24 Rx aerosol inhaler shortness of breath or wheezing #8.5 grams ipratropium 0.5 mg-albuterol 3 mg 3 ml inhalation Q4H PRN wheezing 11/25/24 11/25/24 Rx (2.5 mg base)/3 mL nebulization #180 mL soln lactobacillus combination no.4 3 3 cell PO QAM 11/25/24 11/25/24 History billion cell capsule (Probiotic) tiotropium 2.5 mcg-olodaterol 2.5 2 puff inhalation QAM #4 grams 11/25/24 11/25/24 Rx mcg/actuation mist for inhalation (Stiolto Respimat) Past Med/Surg History Problem List (Updated 11/25/24 @ 17:10 by Orestes Cooper DO) Vomiting (Acute) Abdominal pain (Acute) Infarction of kidney (Acute) Splenic infarct (Acute) Renal infarct Splenic infarct Chylothorax determined by thoracentesis Pleural effusion Perforation of tympanic membrane (Acute) Electrolyte abnormality (Acute) Chemotherapy induced neutropenia (Acute) Chemotherapy induced nausea and vomiting (Acute) Acute dehydration (Acute) Nausea & vomiting (Acute) Hypophosphatemia Hypomagnesemia Hypokalemia Neutropenia Nausea & vomiting Warthin's tumor Ex-smoker Abnormal positron emission tomography (PET) scan Small cell lung cancer in adult (Acute) Chronic bronchitis COPD with emphysema Pulmonary nodules/lesions, multiple Type II diabetes mellitus Multinodular thyroid Hyperlipidemia Medical History Small cell lung cancer in adult dx 07/2024, sx and will begin chemo 10/28/24 Nausea and vomiting after administration of anesthetic agent History of depression "only when her in 1992" Type II diabetes mellitus pt denies, stated "she has always has been borderline" Multiple pulmonary nodules Multinodular thyroid Hyperlipidemia COPD with emphysema Chronic bronchitis Cervical disc disease hx Surgical History History of bronchoscopy 07/2024, [facility] Status post lung surgery (08/28/24) Right lung partial, lymph nodes, [facility] Hx of cervical spine surgery 2000, cervical disectomy, unsure of level, no ROM limitations Family History Brother Skin cancer Cancer Sister Colorectal cancer Diabetes Cancer Mother Myocardial infarction Diabetes Heart disease Father Myocardial infarction Diabetes Heart disease Denies family history of Sudden Ovarian cancer Prostate cancer Breast cancer Social History Smoking Status: Former smoker Tobacco Type: Cigarettes Age Started Using Tobacco: 18; Age Quit Using Tobacco: 74; packs per day: 1.5; Second Hand Exposure: No; Do You Dip or Chew Tobacco: No; Hx Alcohol Use: No Hx Substance Use: No Preferred Language: [place] Citizen Communication Ability: Effective Hearing Ability: Hard of Hearing White Work Cleaner Required: No Beliefs That Will Affect Care: None marital status: / Current Living Situation: Alone current occupational status: retired How many Children do You have: 2 Feels Safe at Home: Yes Diet: regular caffeine: Yes during the past year weight has: remained stable Dental Care, Regularly: No Physical Activity Frequency: Daily Physical Activity Frequency Comment: Walking, active around the house Seatbelt Use: always Sunscreen Use: No Assistive Devices: Walker Review of Systems Review of Systems: All systems reviewed & are unremarkable except as noted in HPI & below Physical Exam Physical Exam: General: No acute distress, nondiaphoretic. Chronically ill appearing. Skin: The skin was without rashes, erythema, edema, or bruising. Cardiac: Regular rate and rhythm without murmurs gallops or rubs. Pulm: Clear to auscultation bilaterally without wheezes, rales or rhonchi. Normal respiratory effort. 95% on room air. Abdominal: Soft, nondistended. Tender to palpation of LUQ and LLQ and left flank. No guarding or rebound tenderness. Bowel sounds present. Neuro: A&O x3. No focal neurological deficits. Lower extremities: No peripheral edema noted. Peripheral pulses intact bilaterally. Warmth, sensation, motor function intact bilaterally. Results & Data Results & Data Vital Signs (Past 12 Hours) Vital Signs Temp Pulse Pulse Resp BP BP Pulse Ox 11/25/24 16:23 85 11/25/24 16:00 87 20 136/79 95 11/25/24 14:00 89 18 138/70 96 11/25/24 12:16 83 11/25/24 12:04 83 14 157/79 H 95 11/25/24 12:01 98.0 F 11/25/24 10:57 96.6 F L 72 18 151/81 H 100 O2 Del Method 11/25/24 16:23 11/25/24 16:00 Room Air 11/25/24 14:00 Room Air 11/25/24 12:16 11/25/24 12:04 Room Air 11/25/24 12:01 11/25/24 10:57 Room Air Laboratory Results Reviewed CBC with differential Reviewed coags Reviewed CMP Reviewed UA Diagnostic Findings Reviewed CT A/P Reviewed venous Doppler study Reviewed CXR Abdomen/Pelvis CT 11/25/24 11:[address] WITH IV CONTRAST CT DOSE: 611.07 mGy.cm HISTORY: llq abd pain TECHNIQUE: Multiaxial CT images of the abdomen and pelvis were performed following the IV administration of 90 cc of Optiray, A dose lowering technique was utilized adhering to the principles of ALARA. COMPARISON STUDY: 10/22/2024 FINDINGS: ABDOMEN: Liver, gallbladder, pancreas, and adrenal glands are unremarkable. There is an interval wedge shaped area of hypodensity and decreased enhancement at the posterior aspect of the spleen consistent with splenic infarction involving approximately 20% of the spleen. There are a few interval small areas of wedge-shaped hypodensity and decreased enhancement superiorly and inferiorly at the left kidney and inferiorly at the right kidney consistent with tiny renal infarctions. There are severe diffuse atherosclerotic calcifications with areas of noncalcified plaque. There is mild narrowing of the distal aortic lumen due to noncalcified plaque. There is at least mild narrowing at the origin of the right renal artery. There is at least mild narrowing at the origin of the celiac artery. There is occlusion of the left common iliac artery with reconstitution at the left external iliac artery. Pelvis: Uterus and adnexa are grossly unremarkable. Urinary bladder is nondistended. There is sigmoid diverticulosis. No acute diverticulitis. There is mild retained stool. No bowel inflammation or obstruction. No free fluid or free air. No enlarged adenopathy. Osseous structures: No acute osseous findings. IMPRESSION: 1. Interval recent subacute small infarctions at the spleen and kidneys. 2. Atherosclerosis as described. 3. No other acute findings seen. Otherwise as described. ACT 112: Negative or not required by law. The above report was generated using voice recognition software. It may contain grammatical, syntax or spelling errors. Electronically signed by: Sebastien Auguste M.D. 11/25/2024 12:53 PM Chest X-Ray 11/25/24 11:21 XR chest 1V portable CLINICAL HISTORY: abd pain COMPARISON STUDY: 10/31/2024 FINDINGS: Heart size and pulmonary vasculature are normal. Stable surgical suture and mild scarring at the right midlung. Stable mild scarring at the left lung base. There is a small right apical pneumothorax, decreased in size. There is a possible small right pleural effusion, decreased. IMPRESSION: 1. Small right apical pneumothorax, decreased in size. Possible small right pleural effusion, decreased. 2. No other acute findings seen. ACT 112: Negative or not required by law. Electronically signed by: Sebastien Auguste M.D. 11/25/2024 12:17 PM Venous Doppler Study 11/25/24 13:05 BILATERAL LOWER EXTREMITY VENOUS DOPPLER CLINICAL HISTORY: ? dvt. Lung cancer. COMPARISON STUDY: No previous studies for comparison. TECHNIQUE: Sonography of the deep venous system of the bilateral lower extremities was performed. Compression and augmentation were evaluated. FINDINGS: The bilateral common femoral, superficial femoral and popliteal veins were compressible. Augmentation was normal. Flow was shown within the deep calf vessels. IMPRESSION: No evidence of deep venous thrombus within the bilateral lower extremities. ACT 112: Negative or not required by law. Electronically signed by: Thomas Giraldo M.D. 11/25/2024 2:22 PM Code Status & VTE Plan VTE Prophylaxis Plan VTE Prophylaxis will be ordered: Yes PG Care Time/CCT Total # of Minutes Spent Total Time Spent with Patient: Total time spent is greater than 50% in coordination of care (as documented) at patient's floor/unit and/or counseling patient: Coding Level of Care Code 05048 INT INP/OBS CARE 3/75MIN Diagnoses Splenic infarct D73.5 Renal infarct N28.0 Small cell lung cancer in adult C34.90 COPD with emphysema J43.9 Type II diabetes mellitus E11.9
[2024-11-25] MEDS: MoRPHine SULFATE 2 MG/ML CARP IV STA (17:34)
[2024-11-25] MEDS ORDERED: POLYETHYLENE (MIRALAX) 17 GM PACK PO PRN (18:31)
[2024-11-25] MEDS ORDERED: ONDANSETRON INJ 2 MG/ML 2 ML VIAL IV PRN (18:31)
[2024-11-25] MEDS ORDERED: MoRPHine SULFATE 4 MG/ML 1 ML CARP\\VIAL IV PRN (18:31)
[2024-11-25] MEDS ORDERED: MELATONIN 3 MG TAB PO PRN (18:31)
[2024-11-25] MEDS ORDERED: MoRPHine SULFATE 2 MG/ML CARP IV PRN (18:31)
[2024-11-25] MEDS ORDERED: ALBUT/IPRATROP 3MG/0.5MG NEB 3 ML VIAL INH PRN (18:31)
[2024-11-25] MEDS ORDERED: ALBUTEROL HFA 8 GM INHALER INH PRN (18:31)
[2024-11-25] MEDS: ACETAMINOPHEN 325 MG TAB PO SCH (19:22)
[2024-11-25] MEDS: MIRTAZAPINE TAB 15 MG TAB PO SCH (20:09)
[2024-11-25] MEDS: ROSUVASTATIN CALCIUM 20 MG TAB PO SCH (20:09)
[2024-11-25] MEDS: PANTOprazole 40 MG TAB PO SCH (20:09)
[2024-11-25 22:15] LABS: ANTI-Xa, UFH(UnfractionatedHep 0.74 IU/ml (0.3-0.7)
[2024-11-26 05:12] LABS: Hematocrit (blood only) 28.8 % (37.0-47.0); Hemoglobin 9.4 g/dl (12.0-16.0); Mean Corpuscular Hemoglobin 29.6 pg (25.0-34.0); Mean Corpuscular Hgb Conc 32.6 g/dL (32.0-36.0); Mean Corpuscular Volume 90.6 fL (80.0-100.0); Mean Platelet Volume 9.7 fL (9.4-12.4); Platelet Count 160 K/uL (130-400); RDW Coefficient of Variation 12.9 % (11.5-14.5); RDW Standard Deviation 43.2 fL (36.4-46.3); Red Blood Count 3.18 M/uL (4.20-5.40); White Blood Count 6.01 K/ul (4.8-10.8)
[2024-11-26 05:17] LABS: Albumin Globulin Ratio 1.2 (0.9-2); Albumin Level 3.1 gm/dl (3.4-5.0); BUN Creatinine Ratio 21.5 (10-20); Bilirubin,Total 0.4 mg/dl (0.2-1.0); Calcium 8.3 mg/dl (8.6-10.3); Creatinine Clr Calc Pharmacy 43.2 ml/min; Globulin 2.5 gm/dl (2.5-4.0); Total Protein 5.6 gm/dl (6.0-8.3)
[2024-11-26 05:23] LABS: ANTI-Xa, UFH(UnfractionatedHep 0.62 IU/ml (0.3-0.7); Partial Thromboplastin Ratio 1.5; Partial Thromboplastin Time 41 Seconds (21-31)
[2024-11-26 05:37] LABS: Basophils # (auto) 0.06 K/uL (0.00-0.20); Dohle Bodies 1+; Eosinophils # (auto) 0.18 K/uL (0.00-0.50); Immature Granulocytes # (auto) 0.04 K/uL (0.01-0.20); Immature Granulocytes % (auto) 0.7 %; Lymphocytes # (auto) 2.75 K/uL (1.20-3.40); Lymphocytes % (auto) 45.8 %; Monocytes # (auto) 0.17 K/uL (0.11-0.59); Monocytes % (auto) 2.8 %; Neutrophils # (auto) 2.81 K/uL (1.40-6.50); Neutrophils % (auto) 46.7 %
--- NOTE | 2024-11-26 07:42 | XRay Report ---
EXAM: XR chest 1V portable CLINICAL HISTORY: Pneumothorax, probably chronic TECHNIQUE: X-ray image of the chest obtained in AP portable projection. COMPARISON: Prior X-ray dated 10/31/2024 for comparison. FINDINGS: Pulmonary Parenchyma: Interval decrease in right pneumothorax, with suspected apical lucency and pleural line, could be either a true finding or a projectional. Thin atelectatic band in left lower zone. Unchanged prominent bilateral parahilar markings. Mild blunting of bilateral CP angles likely pleural thickening. Irregular shaped linear lucency with radio-opaque wall, traversing right lung zone extending superiorly, could be fibrotic tract following the course of prior chest tube, clinical correlation advised Heart and Mediastinum: Heart size and shape are normal. No mediastinal widening or masses. No hilar or mediastinal lymphadenopathy. Bony Thorax: Fracture in the right posterior 7th rib, more prominent in the current study. Spondylotic changes in the thoracic spine. Soft Tissues: Soft tissues overlying the chest wall are unremarkable. IMPRESSION: 1. Interval decrease in right pneumothorax, with suspected apical lucency and pleural line, could be either a true finding or a projectional. 2. Unchanged prominent bilateral parahilar markings. 3. Mild blunting of bilateral CP angles likely pleural thickening. 4. Fracture in right posterior 7th rib, more prominent in current study. 5. Irregular shaped linear lucency with radio-opaque wall, traversing right lung zone extending superiorly, could be fibrotic tract following the course of prior chest tube, clinical correlation advised 6. Correlation with clinical data, and if needed CT chest advised for proper assessment of residual pneumothorax Electronically signed by Rob Jung 11-26-2024 07:42 AM
[2024-11-26] MEDS: MAGNESIUM OXIDE 400 MG TAB PO SCH (08:36)
[2024-11-26] MEDS: UMECLIDINIUM/VILANTEROL 62.5/25MCG 7 PUFFS/INHALER INH SCH (08:38)
--- NOTE | 2024-11-26 13:19 | XCELERA ---
[id number]
--- NOTE | 2024-11-26 19:41 | Hospitalist Progress Note ---
Date of Service November 26, 2024 Assessment & Plan (1) Splenic infarct: (2) Renal infarct: Plan: A/P: Multiple infarcts spleen and bilateral kidneysmay have had embolic or atheromatous shower, she is hypercoagulable because of her small cell lung cancer, we will treat this with blood thinners. Should be able to start apixaban in AM if no evidence of bleeding or worsening pneumothorax, which seems to be chronic at this point. Ordered AM CXR. Consider echo to evaluate for source of cardiac embolism however really would not change control specialist. 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 she currently has uncontrolled pain and nausea, timing of discharge will depend on her symptom control. consult to oncology in place (3) Small cell lung cancer in adult: (4) COPD with emphysema: (5) Type II diabetes mellitus: Plan 74-year-old female with past medical history of COPD, small cell lung cancer, type 2 diabetes, hyperlipidemia, depression. She presented to the ED with LLQ abdominal pain that began about 2 hours prior to her arrival in ED. She had associated N/V and flank pain. CT A/P revealed splenic infarction involving ap proximately 20% of the spleen, bilateral tiny renal infarctions, occlusion of the left common iliac artery with reconstitution at the left external iliac artery. Venous Doppler negative for DVTs bilaterally. #Splenic and renal infarcts - likely secondary to hypercoagulable state with active cancer Renal function stable, VSS Continue heparin bolus with drip started in ED. Can transition to Lovenox or Eliquis tomorrow 11/26/2024 if stable. Will need mcc anticoagulation on discharge Consider echocardiogram to evaluate for embolic source or valvular disease but will defer on admission Pain regimen with scheduled Tylenol 650 mg p.o. Q4H, morphine 2 mg IV Q4H PRN moderate pain, morphine 4 mg IV Q4H PRN severe pain #Small cell lung cancer / COPD S/p partial right lobectomy in 08/2024 at [facility]. Started Chemotherapy with cisplatin/etoposide on 10/28. Follows with Dr. Simms from [facility] outpatient Normal WBC and neutrophil count on admission CXR on admission noted small right pneumothorax, decreased in size. Stable on room air Continue home inhalers/regimen #Type 2 DM A1c 6.6% in 07/2024. Managed with diet at home Non-fasting BSG 134 on admission - will defer SSI on admission Consider SSI coverage if blood sugars start to be consistently elevated #Depression - Continue Mirtazapine 15 mg HS #Hyperlipidemia - Continue Rosuvastatin 20 mg HS VTE PPx: Heparin drip as above. Patient takes Aspirin 81 mg daily for primary prevention - this can likely be discontinued on discharge as she will need mcc anticoagulation and has no history of OR, TIA, stroke. CODE STATUS: DNR/DNI Discussed with son at bedside Reviewed outpatient records Admission and Anticipated Discharge Date Admission Date: November 25, 2024 Subjective patient with splenic infarcts, Physical Exam Physical Exam: General: No acute distress, nondiaphoretic. Chronically ill appearing. Skin: The skin was without rashes, erythema, edema, or bruising. Cardiac: Regular rate and rhythm without murmurs gallops or rubs. Pulm: Clear to auscultation bilaterally without wheezes, rales or rhonchi. Normal respiratory effort. 95% on room air. Abdominal: Soft, nondistended. Tender to palpation of LUQ and LLQ and left flank. No guarding or rebound tenderness. Bowel sounds present. Neuro: A&O x3. No focal neurological deficits. Lower extremities: No peripheral edema noted. Peripheral pulses intact bilaterally. Warmth, sensation, motor function intact bilaterally. Results & Data Results & Data Vital Signs (Past 12 Hours) Vital Signs Temp Pulse Pulse Resp BP Pulse Ox O2 Del Method 11/26/24 16:14 36.6 C 82 20 115/67 96 Room Air 11/26/24 14:46 82 11/26/24 11:37 36.6 C 72 20 118/72 97 Room Air 11/26/24 07:56 36.6 C 73 18 118/71 99 Room Air PG Care Time/CCT Total # of Minutes Spent Total Time Spent with Patient: Total time spent is greater than 50% in coordination of care (as documented) at patient's floor/unit and/or counseling patient: Coding Level of Care Code 28932 SUB INP/OBS CARE 2/35MIN Diagnoses Splenic infarct D73.5 Renal infarct N28.0 Small cell lung cancer in adult C34.90 COPD with emphysema J43.9 Type II diabetes mellitus E11.9
[2024-11-27 06:55] LABS: ANTI-Xa, UFH(UnfractionatedHep 0.51 IU/ml (0.3-0.7)
--- NOTE | 2024-11-27 07:32 | Oncology Consultation ---
Date of Consultation November 27, 2024 History of Present Illness Attending Physician: Donna Eduardo MD Allergies Allergy/AdvReac Type Severity Reaction Status Date / Time No Known Allergies Allergy Verified 11/25/24 14:55 Home Medications Medication Instructions Recorded Confirmed Type nebulizer accessories #1 ea 04/21/24 10/02/24 Rx nebulizer and compressor #1 ea 04/21/24 10/02/24 Rx ondansetron 4 mg disintegrating 4 mg PO Q8H PRN nausea and 10/02/24 11/25/24 Rx tablet vomiting 5 days #30 tabs aspirin 81 mg tablet,delayed 81 mg PO HS 10/15/24 11/25/24 History release mirtazapine 15 mg tablet 15 mg PO HS 10/15/24 11/25/24 History rosuvastatin 20 mg tablet 20 mg PO HS #100 tabs 11/03/24 11/25/24 Rx omeprazole 20 mg capsule,delayed 20 mg PO BID 11/10/24 11/25/24 History release magnesium oxide 400 mg PO DAILY #90 tabs 11/13/24 11/25/24 Rx albuterol sulfate 90 mcg/actuation 2 puff inhalation Q6H PRN 11/25/24 11/25/24 Rx aerosol inhaler shortness of breath or wheezing #8.5 grams ipratropium 0.5 mg-albuterol 3 mg 3 ml inhalation Q4H PRN wheezing 11/25/24 11/25/24 Rx (2.5 mg base)/3 mL nebulization #180 mL soln lactobacillus combination no.4 3 3 cell PO QAM 11/25/24 11/25/24 History billion cell capsule (Probiotic) tiotropium 2.5 mcg-olodaterol 2.5 2 puff inhalation QAM #4 grams 11/25/24 11/25/24 Rx mcg/actuation mist for inhalation (Stiolto Respimat) Patient History Medical History Small cell lung cancer in adult dx 07/2024, sx and will begin chemo 10/28/24 Nausea and vomiting after administration of anesthetic agent History of depression "only when her in 1992" Type II diabetes mellitus pt denies, stated "she has always has been borderline" Multiple pulmonary nodules Multinodular thyroid Hyperlipidemia COPD with emphysema Chronic bronchitis Cervical disc disease hx Surgical History History of bronchoscopy 07/2024, [facility] Status post lung surgery (08/28/24) Right lung partial, lymph nodes, [facility] Hx of cervical spine surgery 2000, cervical disectomy, unsure of level, no ROM limitations Family History Brother Skin cancer Cancer Sister Colorectal cancer Diabetes Cancer Mother Myocardial infarction Diabetes Heart disease Father Myocardial infarction Diabetes Heart disease Denies family history of Sudden Ovarian cancer Prostate cancer Breast cancer Social History Smoking Status: Former smoker Tobacco Type: Cigarettes Age Started Using Tobacco: 18; Age Quit Using Tobacco: 74; packs per day: 1.5; Second Hand Exposure: No; Do You Dip or Chew Tobacco: No; Hx Alcohol Use: No Hx Substance Use: No Preferred Language: Sami Communication Ability: Effective Hearing Ability: Hard of Hearing Outside Sales Associate Required: No Beliefs That Will Affect Care: None marital status: / Current Living Situation: Alone current occupational status: retired How many Children do You have: 2 Feels Safe at Home: Yes Safety Concerns: Feels Safe At This Time Diet: regular caffeine: Yes during the past year weight has: remained stable Dental Care, Regularly: No Physical Activity Frequency: Daily Physical Activity Frequency Comment: Walking, active around the house Seatbelt Use: always Sunscreen Use: No Assistive Devices: Walker Results & Data Vital Signs (Past 12 Hours) Vital Signs Temp Pulse Pulse Resp BP Pulse Ox O2 Del Method 11/27/24 03:50 36.5 C 78 19 122/74 95 Room Air 11/26/24 23:38 77 11/26/24 23:36 36.6 C 61 19 117/72 95 Room Air 11/26/24 20:00 36.7 C 90 22 154/67 H 96 Room Air
[2024-11-27] MEDS: Heparin IV Adult Wt-Based Standard w/ INITIAL Bolus Protocol IV STA (09:14)
--- NOTE | 2024-11-27 17:59 | Hospitalist Progress Note ---
Date of Service November 27, 2024 Assessment & Plan (1) Splenic infarct: (2) Renal infarct: Plan: A/P: Multiple infarcts spleen and bilateral kidneysmay have had embolic or atheromatous shower, she is hypercoagulable because of her small cell lung cancer, we will treat this with blood thinners. Should be able to start apixaban in AM if no evidence of bleeding or worsening pneumothorax, which seems to be chronic at this point. Ordered AM CXR. Consider echo to evaluate for source of cardiac embolism however really would not change release manager. 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 she currently has uncontrolled pain and nausea, timing of discharge will depend on her symptom control. Spoke to oncology patient can go home with 5 mg of Eliquis twice daily for indefinite time (3) Small cell lung cancer in adult: (4) COPD with emphysema: (5) Type II diabetes mellitus: Plan 74-year-old female with past medical history of COPD, small cell lung cancer, type 2 diabetes, hyperlipidemia, depression. She presented to the ED with LLQ abdominal pain that began about 2 hours prior to her arrival in ED. She had associated N/V and flank pain. CT A/P revealed splenic infarction involving approximately 20% of the spleen, bilateral tiny renal infarctions, occlusion of the left common iliac artery with reconstitution at the left external iliac artery. Venous Doppler negative for DVTs bilaterally. #Splenic and renal infarcts - likely secondary to hypercoagulable state with active cancer Renal function stable, VSS Continue heparin bolus with drip started in ED. Can transition to Lovenox or Eliquis tomorrow 11/26/2024 if stable. Will need residential anticoagulation on discharge Consider echocardiogram to evaluate for embolic source or valvular disease but will defer on admission #Small cell lung cancer / COPD S/p partial right lobectomy in 08/2024 at [facility]. Started Chemotherapy with cisplatin/etoposide on 10/28. Follows with Dr. Simms from [facility] outpatient Normal WBC and neutrophil count on admission CXR on admission noted small right pneumothorax, decreased in size. Stable on room air Continue home inhalers/regimen #Type 2 DM A1c 6.6% in 07/2024. Managed with diet at home Non-fasting BSG 134 on admission - will defer SSI on admission Consider SSI coverage if blood sugars start to be consistently elevated #Depression - Continue Mirtazapine 15 mg HS #Hyperlipidemia - Continue Rosuvastatin 20 mg HS VTE PPx: Heparin drip as above. Patient takes Aspirin 81 mg daily for primary prevention - this can likely be discontinued on discharge as she will need residential anticoagulation and has no history of NV, TIA, stroke. CODE STATUS: DNR/DNI Discussed with son at bedside Reviewed outpatient records Admission and Anticipated Discharge Date Admission Date: November 25, 2024 Subjective patient with splenic infarcts, Physical Exam Physical Exam: General: No acute distress, nondiaphoretic. Chronically ill appearing. Skin: The skin was without rashes, erythema, edema, or bruising. Cardiac: Regular rate and rhythm without murmurs gallops or rubs. Pulm: Clear to auscultation bilaterally without wheezes, rales or rhonchi. Normal respiratory effort. 95% on room air. Abdominal: Soft, nondistended. Tender to palpation of LUQ and LLQ and left flank. No guarding or rebound tenderness. Bowel sounds present. Neuro: A&O x3. No focal neurological deficits. Lower extremities: No peripheral edema noted. Peripheral pulses intact bilaterally. Warmth, sensation, motor function intact bilaterally. Results & Data Results & Data Vital Signs (Past 12 Hours) Vital Signs Temp Pulse Pulse Resp BP Pulse Ox O2 Del Method 11/27/24 15:41 37.0 C 83 18 96/59 L 97 Room Air 11/27/24 14:39 72 11/27/24 12:06 36.6 C 75 20 101/75 97 Room Air 11/27/24 08:00 36.7 C 84 18 97/61 L 92 Room Air 11/27/24 07:35 72 PG Care Time/CCT Total # of Minutes Spent Total Time Spent with Patient: Total time spent is greater than 50% in coordination of care (as documented) at patient's floor/unit and/or counseling patient: Coding Level of Care Code 24886 SUB INP/OBS CARE 2/35MIN Diagnoses Splenic infarct D73.5 Renal infarct N28.0 Small cell lung cancer in adult C34.90 COPD with emphysema J43.9 Type II diabetes mellitus E11.9
[2024-11-27] MEDS: APIXABAN 5 MG TABLET PO SCH (20:17)
[2024-11-28 06:47] LABS: Hematocrit (blood only) 26.8 % (37.0-47.0); Hemoglobin 8.9 g/dl (12.0-16.0); Mean Corpuscular Hemoglobin 29.4 pg (25.0-34.0); Mean Corpuscular Hgb Conc 33.2 g/dL (32.0-36.0); Mean Corpuscular Volume 88.4 fL (80.0-100.0); Nucleated RBC # (auto) 0.06 K/uL (0.00-0.12); Nucleated RBC % (auto) 1.4 %; RDW Coefficient of Variation 12.8 % (11.5-14.5); RDW Standard Deviation 41.5 fL (36.4-46.3); Red Blood Count 3.03 M/uL (4.20-5.40); White Blood Count 4.19 K/ul (4.8-10.8)
[2024-11-28 06:57] LABS: BUN Creatinine Ratio 14.5 (10-20); Calcium 8.6 mg/dl (8.6-10.3); Creatinine Clr Calc Pharmacy 47.9 ml/min; Potassium 3.3 mmol/L (3.5-5.1)
[2024-11-28 07:10] LABS: Mean Platelet Volume 10.7 fL (9.4-12.4); Platelet Count 98 K/uL (130-400)
[2024-11-28 07:16] LABS: ANTI-Xa, UFH(UnfractionatedHep 1.31 IU/ml (0.3-0.7)
[2024-11-28] MEDS: POTASSIUM CHLORIDE / WTR 10 MEQ/100 ML PLCT IV SCH (09:42)
[2024-11-28 10:55] VITALS: BP 107/62; PULSE 83; RESP 19; TEMP 97.3; O2SAT 100
--- NOTE | 2024-11-28 19:32 | Discharge Summary ---
Date of Service November 28, 2024 Admission HPI Per Admitting Provider Astrid is a pleasant 74-year-old female with past medical history of COPD, small cell lung cancer, type 2 diabetes, hyperlipidemia, depression. She presented to the ED with abrupt onset of left-sided flank pain with associated nausea and vomiting. Her son is at bedside. She reports she felt at her baseline health this morning, went to her pulmonology appointment outpatient with Dr. Paul, then went to [employer] and that is when her symptoms started and prompted her to come to the ED for further evaluation. Currently, she endorses 6/10 pain and mild nausea at rest, but notes her nausea significantly worsens with any movement. Patient reports that she took all of her regular morning medications today; no recent change in medications. She is unsure why she takes baby Aspirin daily, but denies history of NE, TIA, stroke, so I suspect this is for primary prevention. She does not use supplemental oxygen at baseline. No CPAP at night. Vitals on admission are stable and WNL. Labs on admission are significant for mild anemia with hgb of 11.3 (stable from October). WBC, platelets, electrolytes, renal function, LFTs stable. CT A/P revealed splenic infarction involving approximately 20% of the spleen, b ilateral tiny renal infarctions, occlusion of the left common iliac artery with reconstitution at the left external iliac artery. Venous Doppler negative for DVTs bilaterally. We discussed code status, she wishes to be DNR/DNI. Patient was seen by oncologist IV heparin is switched to oral Eliquis patient will be going home with Eliquis 5 mg twice daily for indefinite time Admission Exam (Per Admitting) Constitutional General: No acute distress, nondiaphoretic. Chronically ill appearing. Skin: The skin was without rashes, erythema, edema, or bruising. Cardiac: Regular rate and rhythm without murmurs gallops or rubs. Pulm: Clear to auscultation bilaterally without wheezes, rales or rhonchi. Norm al respiratory effort. 95% on room air. Abdominal: Soft, nondistended. Tender to palpation of LUQ and LLQ and left flank. No guarding or rebound tenderness. Bowel sounds present. Neuro: A&O x3. No focal neurological deficits. Lower extremities: No peripheral edema noted. Peripheral pulses intact bilaterally. Warmth, sensation, motor function intact bilaterally. Discharge Data Consultations 11/25/24 13:05 ED Decision to Admit Stat 11/26/24 09:39 Consult Oncology Routine 11/27/24 11:10 Consult Oncology Routine Hospital Course (1) Splenic infarct: (2) Renal infarct: A/P: Multiple infarcts spleen and bilateral kidneysmay have had embolic or atheromatous shower, she is hypercoagulable because of her small cell lung cancer, we will treat this with blood thinners. Should be able to start apixaban in AM if no evidence of bleeding or worsening pneumothorax, which seems to be chronic at this point. Ordered AM CXR. Consider echo to evaluate for source of cardiac embolism however really would not pipe changer. 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 she currently has uncontrolled pain and nausea, timing of discharge will depend on her symptom control. Spoke to oncology patient can go home with 5 mg of Eliquis twice daily for indefinite time (3) Small cell lung cancer in adult: (4) COPD with emphysema: (5) Type II diabetes mellitus: Plan 74-year-old female with past medical history of COPD, small cell lung cancer, type 2 diabetes, hyperlipidemia, depression. She presented to the ED with LLQ abdominal pain that began about 2 hours prior to her arrival in ED. She had associated N/V and flank pain. CT A/P revealed splenic infarction involving approximately 20% of the spleen, bilateral tiny renal infarctions, occlusion of the left common iliac artery with reconstitution at the left external iliac artery. Venous Doppler negative for DVTs bilaterally. #Splenic and renal infarcts - likely secondary to hypercoagulable state with active cancer Renal function stable, VSS Continue heparin bolus with drip started in ED. Can transition to Lovenox or E liquis tomorrow 11/26/2024 if stable. Will need halfway anticoagulation on discharge Consider echocardiogram to evaluate for embolic source or valvular disease but will defer on admission #Small cell lung cancer / COPD S/p partial right lobectomy in 08/2024 at [facility]. Started Chemotherapy with cisplatin/etoposide on 10/28. Follows with Dr. Simms from [facility] outpatient Normal WBC and neutrophil count on admission CXR on admission noted small right pneumothorax, decreased in size. Stable on room air Continue home inhalers/regimen #Type 2 DM A1c 6.6% in 07/2024. Managed with diet at home Non-fasting BSG 134 on admission - will defer SSI on admission Consider SSI coverage if blood sugars start to be consistently elevated #Depression - Continue Mirtazapine 15 mg HS #Hyperlipidemia - Continue Rosuvastatin 20 mg HS VTE PPx: Heparin drip as above. Patient takes Aspirin 81 mg daily for primary prevention - this can likely be discontinued on discharge as she will need halfway anticoagulation and has no history of NE, TIA, stroke. CODE STATUS: DNR/DNI Discussed with son at bedside Reviewed outpatient records Coding Level of Care Code 84311 INP/OBS DISCH >30 MIN Diagnoses Splenic infarct D73.5 Renal infarct N28.0 Small cell lung cancer in adult C34.90 COPD with emphysema J43.9 Type II diabetes mellitus E11.9 Time Spent (min) 35
== END 2024-11-28 14:25 | disposition home or self-care (01) | DRG 699 ==
LOC: ED 10:49 → 2S 16:33 → SUATTDRO 16:33 → 2S 18:09